=== PATIENT | male | born 1930 | race Caucasian/White ===

== ENCOUNTER → 2016-11-15 | Outpatient (CLI) | payer BC ==
[~2016-11-15] VITALS: Ht 162.6 cm; Wt 81.2 kg
[~2016-11-15] MED LIST: ACET-1256 PO; ACET-749 PO; APOA1CAP PO; ATOR-24 PO; CAFF200T13 PO; CALC-20 PO; CALC0.2510 PO; CHOL100010 PO; CHOL20009 PO; CIPR-255 PO; CMD2 PO; COEN200C PO; CYAN50005 PO; DONE10TA12 PO; ESCI1TAB10 PO; FISHOIL PO; MULT-513 PO; NITR1CAP16 PO; OMEG10007 PO; OMEP20CA9 OR; PHEN95TA14 PO; VERA120T15 PO; VERA1TAB53 PO; VITAMIN PO; WARF2TAB8 PO
[2016-11-15 14:55] VITALS: BP 153/81; PULSE 70; Ht 162.6 cm; Wt 81.2 kg
== END | disposition home or self-care (01) ==
LOC: C.NEUR 13:33
PROVIDERS: ATTEND Internal Medicine Pulmonary Disease
DX: G47.30 Sleep apnea, unspecified (principal)

== ENCOUNTER → 2016-11-19 | Outpatient (CLI) | payer BC ==
[~2016-11-19] MED LIST changes: -ACET-749 PO; -CAFF200T13 PO; -NITR1CAP16 PO; -PHEN95TA14 PO
--- NOTE | 2016-11-19 10:45 | DIAGNOSTIC IMAGING REPORT ---
ULTRASOUND OF THE THYROID GLAND CLINICAL HISTORY: Hyperparathyroidism. COMPARISON STUDY: No priors. TECHNIQUE: Real-time, grayscale, and color flow sonography of the thyroid gland is performed utilizing a high-frequency linear transducer. Images are reviewed in the transverse and longitudinal planes. FINDINGS: Right lobe: The right lobe of the thyroid gland is diminutive and heterogeneous in echotexture, measuring 3.3 x 1.7 x 1.6 cm. Left lobe: The left lobe of the thyroid gland is diminutive and heterogeneous in echotexture, measuring 4.0 x 1.2 x 1.1 cm. Isthmus: The thyroid isthmus is normal in appearance and measures 0.3 cm in AP diameter. IMPRESSION: The thyroid gland is diminutive and heterogeneous in echotexture. Electronically signed by: Raza Harris M.D. 11/19/2016 10:43 AM Dictated Date/Time: 11/19/2016 10:42 AM
== END | disposition home or self-care (01) ==
LOC: C.ULTR 09:59
PROVIDERS: ATTEND Family Medicine
DX: I10 Essential (primary) hypertension (principal); E66.9 Obesity, unspecified; R73.09 Other abnormal glucose; E21.3 Hyperparathyroidism, unspecified

== ENCOUNTER → 2016-12-06 | Outpatient (CLI) | payer BC | END | disposition home or self-care (01) | LOC: C.MAMM 14:46 | PROVIDERS: ATTEND Family Medicine | DX: E21.3 Hyperparathyroidism, unspecified (principal); Z13.820 Encounter for screening for osteoporosis ==

== ENCOUNTER → 2016-12-21 | Outpatient (CLI) | payer BC ==
[2016-12-21 17:59] LABS: CALCIUM URINE 10.2 mg/dl
--- NOTE | 2016-12-29 08:40 | CODING QUERY MEDICAL NECESSITY ---
SUPPORTING DIAGNOSIS NEEDED A supporting diagnosis is required for the test/procedure performed on this patient in order for us to be reimbursed by the patient's insurance. Please provide a supporting diagnosis for the following test/procedure listed below next to the test name along with your signature. *If there is no additional diagnosis for this patient that would support the following test/procedure please document that below next to the test/procedure. Test(s)/Procedure(s) that require a supporting diagnosis: * VITAMIN D 25-HYDROXY DIAGNOSIS: * DOS: 12/21/16 Provider Signature: Date: Thank you Ann Arias Health Information Management Once completed, please kindly fax back to [phone] For questions please call [phone]
== END | disposition home or self-care (01) ==
LOC: C.LAB1850 15:59
PROVIDERS: ATTEND Internal Medicine Endocrinology, Diabetes & Metabolism
DX: N20.0 Calculus of kidney (principal); E83.51 Hypocalcemia; E34.9 Endocrine disorder, unspecified

== ENCOUNTER → 2017-02-28 | Outpatient (CLI) | payer BC ==
[~2017-02-28] MED LIST changes: +ACET-749 PO; +CAFF200T13 PO; +NITR1CAP16 PO; +PHEN95TA14 PO
--- NOTE | 2017-02-28 17:43 | DIAGNOSTIC IMAGING REPORT ---
ULTRASOUND LEFT VENOUS DOPP LOWER EXT UNILAT CLINICAL HISTORY: Left leg pain. History of DVT. COMPARISON STUDY: No previous studies for comparison. FINDINGS: Real-time and color flow Doppler imaging were performed. Flow was seen within the femoral, popliteal and calf veins with no intraluminal thrombus demonstrated. The saphenous vein is patent. IMPRESSION: No evidence of left lower extremity DVT. Electronically signed by: Kali Julian M.D. 02/28/2017 5:41 PM Dictated Date/Time: 02/28/2017 5:40 PM
== END | disposition home or self-care (01) ==
LOC: C.ULTR 17:00
PROVIDERS: ATTEND Family Medicine
DX: M79.605 Pain in left leg (principal)

== ENCOUNTER → 2017-04-13 | Outpatient (CLI) | payer BC ==
[~2017-04-13] MED LIST changes: -CHOL100010 PO; -VITAMIN PO
--- NOTE | 2017-04-14 07:55 | PAP/PSG TECHNICIAN REPORT ---
[facility] Banquet Coordinator Polysomnogram Report Study name: None Report date: 04/14/2017 Study date: 04/13/2017 Referring Physician: DR. FLAVIA GUERRERO Name: LORE JOHN Interpreting Physician: Zac Olvera M.D. Date of : 1930 Banquet Coordinator: Alexa Beasley, PSGT. Sex: Male Age: 86 StudyType: PSG Weight: 176 lbs Height: 86 years, Height 5' 2" BMI: 32.19 Medications: SEE LIST OF 15 MEDICATIONS IN CHART. Patient History 86 YR. OLD MALE IN ROOM 7, PRESENTS FOR A SPLIT NIGHT SLEEP STUDY WITH AN AHI OF 15 OR GREATER.PT. HAS BEEN ON C-PAP AND HAS HAD A RECENT DME REAING OF 44.9. PT. HAS BEEN A SETTING OF 6 CM TO 15 CM WITH GREAT AIR LEAKAGE. Parameters Monitored NPSG: E1-M2, E2-M1, Fp1-M2, Fp2-M1, F3-M2, F4-M2, F4-M1, C3-M2, C4-M2, C4-M1, O1-M2, O2-M2, O2-M1, T3-M2, T4-M1, P3-M2, P4-M1, CHIN1, CHIN2, HR, EKG, Legs, PFLOW, SNOR, FLOW, CFLOW, Tidal Volume, THOR, ABDO, SpO2, PLTH, CPRESS, ETCO2 Wave, ETCO2, pH Sleep Architecture Sleep Stages Time at Lights Off 11:01:01 PM STAGES Time (min.) TST (%) Time at Lights On 5:45:31 AM Wake 52.5 -- Total Recording Time (TRT) 403.50 min. N1 15.5 4 Total Sleep Period (TSP) 364.0 min. N2 295.0 84 Total Sleep Time (TST) 351.0min. N3 0.0 0 Awake Time 52.5 min. REM 40.5 12 Wake after Sleep Onset 14.0 min. Sleep Efficiency (SE) 87 % Sleep Onset Latency (MOR) 39.5 min. Number of Stage 1 Shifts None Awakenings 3 Stage Changes 13 Number of REM periods 2 REM 40.5 12 REM Latency 185.0 min. NREM 310.5 88 Body Position Analysis Supine Right Left Side Prone Vertical Total Sleep Time (min.) 403.5 0.0 0.0 0.00 0.0 0.0 Total Sleep Time (%) 100% 0% 0% 0 0% N/A% Total Sleep Time REM (min.) 40.5 0.0 0.0 None 0.0 0.0 Total Sleep Time NREM (min.) 310.5 0.0 0.0 None 0.0 0.0 Intermittent Wake (min.) 52.5 0.0 0.0 None 0.0 0.0 Total Sleep Period (%) 100% None None None None None Arousals Myoclonus (PLM) * Events Count Index Events Count Index Spontaneous 84 14 Events Awake (PLMW) 4 4.6 Respiratory 18 3.1 Events Asleep w/ Arousal (PLMA) 7 1.2 PLM 7 1 Events Asleep w/o Arousal (PLMS) 128 21.9 Snoring 15 3 Total Asleep 135 23.1 Total 124 21 Total 139 21 Respiratory Analysis * CA OA MA CH H RERA Total Count 0 0 0 0 157 0 157 Index 0.0 0.0 0.0 0 26.8 0 26.8 Mean Duration 0.0 0.0 0.0 0.00 18.4 0.0 18.4 Longest Duration 0.0 0.0 0.0 0.00 0.0 0.0 53.0 Respiratory Event Summary Total Supine ~Supine Right Left Prone REM NREM Apneas Count 0 0 N/A N/A N/A N/A 0 0 Index 0.0 0 N/A N/A N/A N/A 0 0 Hypopneas (4% Desat) Count 157 157 N/A N/A N/A N/A 15 142 Index 26.8 26.8 N/A N/A N/A N/A 22.2 27.4 Apneas & All Hypopneas Count 157 157 N/A N/A N/A N/A 15 142 Index 26.8 27 N/A N/A N/A N/A 22.2 27.4 Respiratory Events (Draw Tender+All Hyp+RERA) Count 157 157 N/A N/A N/A N/A 15 142 Index 26.8 27 N/A N/A N/A N/A 22.2 27.4 Respiratory Related Arousal Count 18 157 N/A N/A N/A N/A 0 18 Index 3.1 3 N/A N/A N/A N/A 0 3 Snoring Analysis Supine Right Left Prone REM NREM Total Snore duration 5.8 min Snores count 226 N/A N/A N/A 20 206 226 Snore mean duration 1.5 Sec Snores index 39 N/A N/A N/A 29.6 39.8 38.6 TST with snoring (%) 1.7% Desaturation Event Summary: Minimum %SpO2 Event Count Mean/Min/Max Duration(sec.) Desaturation Index % Time In Bed > 90 160 20.6 / 9.5 / 60.0 195.8 12.2 86 - 90 158 20.3 / 8.3 / 60.0 27.6 85.2 81 - 85 0 N/A 0.0 2.6 76 - 80 0 N/A 0.0 0.1 71 - 75 0 N/A 0.0 0.0 66 - 70 0 N/A 0.0 0.0 61 - 65 0 N/A 0.0 0.0 56 - 60 0 N/A 0.0 0.0 51 - 55 0 N/A 0.0 0.0 < 50 0 N/A 0.0 0.0 Total REM NREM Awake <50% 0.0 min. 0.0 min. 0.0 min. 0.0 min. 51 - 60% 0.0 min. 0.0 min. 0.0 min. 0.0 min. 61 - 70% 0.0 min. 0.0 min. 0.0 min. 0.0 min. 71 - 80% 0.4 min. 0.0 min. 0.4 min. 0.0 min. 81 - 90% 354.1 min. 34.0 min. 272.6 min. 47.5 min. 91 - 100% 49.0 min. 6.5 min. 37.5 min. 5.0 min. Average 89 88 89 89 Minimum SpO2 79 81 79 85 Desaturation Event Index 30.0 45.9 33.0 0.0 # Desat. Events below 89% 197 28 169 N/A Time(%) with Saturation below 89% 50.6 5.6 39.4 5.6 Time(min.) with Saturation below 89% 204.3 22.5 159.1 22.7 Time (mins) REM (mins) NREM (mins) % of TST SpO2 Below 90% 202 31 N171 75.7 SpO2 Below 88% 69 0 0 25 Heart Rate Analysis Min (bpm) Max (bpm) Average (bpm) Awake 60 85 66 NREM 55 80 64 REM 58 72 65 Overall 55 80 64 Supplemental O2 Values Minimum O2 level: None Value Start Time End Time Banquet Coordinator Comments PSG Study Mr. John slept in the supine position.. No cardiac arrhythmia or PLM's noted. No bruxism noted. Snoring was noted and scored as a 1 on a scale of 1 through 5. (0=no snoring, 5=snoring loud enough to be heard through a closed door or down the menjivar way) Mr. John awoke to use the restroom zero times during the night. Mr. John stated, I did sleep as well as I do when I am in my own bed. The bed was comfortable. The final report will be interpreted and signed by a sleep physician. The completed physician report will then be placed in the patient medical record. Pt. did not meet split night criteria. Love did sleep supine the entire study, he did have respiratory events and display hypoxemia, however he did not qualify for a split night study in time for treatment. Therapy (cm H2O) 0 TIB (min.) 403.5 TST (min.) 351.0 Sleep Onset (min.) 39.5 REM Onset From Sleep (min.) 185.0 Sleep Efficiency % 87 Wakefulness (%) 13 Wakefulness (min.) 52.5 NREM 1 (%) 4 NREM 1 (min.) 15.5 NREM 2 (%) 84 NREM 2 (min.) 295.0 NREM 3 (%) 0 NREM 3 (min.) 0.0 REM (%) 12 REM (min.) 40.5 # Arousals 124 Arousal Index 21 # Snore 226 Snore Index 38.6 AHI 26.8 AHI Supine 27 AHI Non-Supine N/A NREM AHI 27.4 REM AHI 22.2 RDI 26.8 # Obstructive Apnea 0 # Central Apnea 0 # Mixed Apnea 0 # Hypopneas 157 RERAs 0 Total Respiratory Events 159 Time Below SpO2 89% (min.) 181.6 Mean NREM SpO2 (%) 89 Mean REM SpO2 (%) 88 Mean Sleep SpO2 (%) 89 Min NREM SpO2 (%) 79 Min REM SpO2 (%) 81 Position Supine (min.) 403.5 Position Non-supine (min.) 0.0 LM Index Sleep 23.1 LM Index NREM 23.8 LM Index REM 17.8 Mean Heart Rate (bpm) 64 Min Heart Rate (bpm) 55
--- NOTE | 2017-04-17 21:44 | POLYSOMNOGRAPH REPORT ---
REFERRING PHYSICIAN: Dr. Ha Hsieh. CLINICAL DATA: The patient is an 86-year-old male. He was diagnosed with obstructive sleep apnea approximately 1999. He was started on CPAP therapy, but did not use it regularly. A CPAP re-titration study was done 11/01/2016. His CPAP was treated up to a pressure of 6 cm. His apnea-hypopnea index was only 3.6. The patient has been wearing CPAP regularly. However, compliance data has shown significant sleep apnea. Compliance for the 4 weeks prior to January 31 shows an apnea-hypopnea index of 48.5 with the CPAP set at 6. Compliance obtained for the 4 weeks before February 18 revealed the apnea-hypopnea index was 44.9. Compliance obtained for 4 weeks prior to March 29 showed an apnea-hypopnea index of 25.3 and this was with the patient wearing auto CPAP with pressures between 5 and 15. He is referred back to the sleep disorder center for a sleep study, which would be split, if he met criteria. This study was advised in light of the high reported apnea-hypopnea index, which was markedly different than had been seen at the time of the original CPAP titration study done 6 months ago. SLEEP ARCHITECTURE: The total sleep period was 364 minutes. The total sleep time was 351 minutes. Sleep efficiency was 87%, which would be borderline normal. Sleep onset latency was prolonged at 39.5 minutes. Wake after sleep onset was only 14 minutes. REM latency was prolonged to 185 minutes. Sleep consisted of stage N1 4%, stage N2 84%, stage N3 0%, stage REM 12%. AROUSAL DATA: The patient had a total of 124 arousals, including 84 spontaneous arousals, 18 respiratory arousals, 7 PLM arousals and 15 snoring arousals. The arousal index was 21. PLM DATA: The patient had a total of 135 periodic limb movements for an index of 23.1. There were 7 arousals for a PLM arousal index of 1.2. RESPIRATORY DATA: The patient had a total of 157 respiratory events, all of which were hypopneas. Hypopneas were scored according to the 4% desaturation rule. The apnea-hypopnea index was elevated at 26.8, representing moderate sleep apnea. The mean duration of the hypopneas was 18.4 seconds. OXIMETRY DATA: The average saturation was 89%. The minimum saturation was 79%. The patient had a total of 69 minutes with saturations less than 88%. EKG DATA: The underlying cardiac rhythm was normal sinus. Occasional PACs were noted. The cardiac rates ranged from 55 up to 80 beats per minute with an average of 64 beats per minute. CLIENT CARE MANAGER COMMENTS: The patient slept in the supine position. Snoring was noted and was scored as a 1 on a scale of 1 through 5. The patient indicated he slept as well as he usually does in his own bed. The patient did not meet split night criteria. He did have respiratory events and displayed hypoxemia, however, he did not qualify for a split night study in time for treatment. IMPRESSION: 1. Obstructive sleep apnea -- moderate. 2. Periodic limb movement disorder. COMMENTS: This diagnostic study shows the patient still has moderate sleep apnea. However, he had very few events prior to 1:30 a.m. and thus, a split study could not be done. In addition to the events noted, he had spontaneous arousals that were increased from normal. This may reflect further upper airway resistance. His oxygenation was abnormal, as noted above. RECOMMENDATIONS: 1. It is advised that the patient once again have a CPAP re-titration. This would be helpful to try and determine if he had been having complex sleep apnea as a reason for the elevated apnea-hypopnea index after the first CPAP study done in October 2016. 2. The patient does have an elevated body mass index of 32.19. A weight loss program would be advised.
== END | disposition home or self-care (01) ==
LOC: C.NEUR 21:00
PROVIDERS: ATTEND Physician Assistant Medical
DX: G47.30 Sleep apnea, unspecified (principal)

== ENCOUNTER → 2017-07-22 | Outpatient (CLI) | payer BC ==
[~2017-07-22] MED LIST changes: -ACET-749 PO; -APOA1CAP PO; -CALC0.2510 PO; -NITR1CAP16 PO; -PHEN95TA14 PO
== END | disposition home or self-care (01) ==
LOC: C.LAB1850 10:27
PROVIDERS: ATTEND Internal Medicine Endocrinology, Diabetes & Metabolism
DX: E83.51 Hypocalcemia (principal); M81.0 Age-related osteoporosis without current pathological fracture

== ENCOUNTER 2017-08-10 21:01 | Inpatient (IN) | payer BC, OTHER ==
[~2017-08-10] VITALS: Ht 157.5 cm; Wt 78.0 kg
[~2017-08-10 21:01] MED LIST changes: -ACET-1256 PO; -CAFF200T13 PO; -CIPR-255 PO; -CYAN50005 PO; -MULT-513 PO; -OMEG10007 PO; -VERA120T15 PO
[2017-08-10] MEDS ORDERED: FENTANYL CITRATE INJ 50 MCG/1 ML 2 ML VIAL IV STA (21:38)
[2017-08-10] MEDS ORDERED: SODIUM CHLORIDE 0.9% 1000ML 1,000 ML IV STA (21:38)
[2017-08-10] MEDS ORDERED: ONDANSETRON INJ 2 MG/ML 2 ML VIAL IV STA (21:38)
[2017-08-10] MEDS ORDERED: ACET-1256 PO (21:54)
[2017-08-10] MEDS ORDERED: CHOL20009 PO (21:54)
[2017-08-10] MEDS ORDERED: OMEG10007 PO (21:54)
[2017-08-10] MEDS ORDERED: CYAN50005 PO (21:54)
[2017-08-10] MEDS ORDERED: MULT-513 PO (21:54)
[2017-08-10] MEDS ORDERED: VERA120T15 PO (21:54)
[2017-08-10] MEDS ORDERED: OPTIRAY 320 IV PRN (22:00)
[2017-08-10 22:13] LABS: BASO % 0.5 %; BASO ABS # 0.06 K/uL (0-0.2); COMPLETE YES; EOS % 1.1 %; HEMATOCRIT 41.3 % (42-52); IG% 0.2 %; LYMPH % 11.7 %; LYMPH ABS # 1.51 K/uL (1.2-3.4); MEAN CELL VOLUME 93.2 fL (80-100); MEAN CORPUSCULAR HEMOGLOBIN 30.5 pg (25-34); MEAN CORPUSCULAR HGB CONC 32.7 g/dl (32-36); MEAN PLATELET VOLUME 10.5 fL (7.4-10.4); MONO % 9.9 %; NEUT % 76.6 %; PLATELET COUNT 237 K/uL (130-400); RED BLOOD COUNT 4.43 M/uL (4.7-6.1); WHITE BLOOD COUNT 12.91 K/uL (4.8-10.8)
--- NOTE | 2017-08-10 22:32 | EMERGENCY ROOM VISIT NOTE ---
History Report prepared by Deonte: Keeley Chery Under the Supervision of: Dr. Daniel Alvarado M.D. First contact with patient: 21:09 Chief Complaint: FLANK PAIN Stated Complaint: FLANK PAIN, HX KIDNEY STONES History of Present Illness The patient is an 87 year old male who presents to the Emergency Room with complaints of persistent left flank pain starting 1899. He was feeling well before the pain started. The patient has a history of kidney stones and thinks that this might be a kidney stone. The pain comes around to the front. He currently rates his discomfort as a 7/10 in severity. He took Tylenol at 1899 and ibuprofen at 1999 which improved his pain. He was nauseous and vomited several times. He denies any fever, chills, cough, congestion, SOB, diarrhea, or hematuria. He notes that his blood calcium was found to be low recently and he is currently taking calcium supplements. The patient is on Coumadin for the history of ischemic stroke. He is not on a water pill. Source of History: patient, spouse/significant other Onset: 1899 Position: other (left flank) Symptom Intensity: 7/10 Quality: other (pain) Timing: other (persistent) Modifying Factors (Relieving): tylenol, ibuprofen Associated Symptoms: + nausea, + vomiting, No fevers, No chills, No cough, No SOB, No diarrhea, No urinary symptoms Note: Pt denies congestion. Review of Systems See HPI for pertinent positives and negatives. A total of ten systems were reviewed and were otherwise negative. Past Medical & Surgical Medical Problems: (1) Aortic Valve Disorder (2) Atrial Fibrillation (3) Hyperlipidemia Nec/Nos (4) Hypertension Nos (5) Personal Hx Of Tia,& Cerebral Infarction W/Out Res Deficits (6) Renal stone Family History Noncontributory secondary to age. Social History Smoking Status: Never Smoker Marital Status: Housing Status: lives with family Occupation Status: retired Current/Historical Medications Scheduled Acetaminophen (Tylenol), 1,000 MG PO DAILY Atorvastatin (Lipitor), 40 MG PO QAM Calcium Carbonate-Vitamin D (Calcium 600 + D), 1 TAB PO BID Cholecalciferol (Vitamin D), 1 TAB PO BID Coenzyme Q10 (Ubidecarenone) (Coenzyme Q-10), 200 MG PO QAM Cyanocobalamin (Vitamin B-12), 1 TAB PO DAILY Donepezil Hydrochloride (Aricept), 10 MG PO HS Escitalopram Oxalate (Lexapro), 20 MG PO DAILY Fish Oil ([place]-3), 2,800 MG PO BID Multivitamins/Minerals (Mvi With Minerals), 1 TAB PO DAILY Omeprazole (Prilosec), 20 MG OR DAILY Verapamil (Calan), 120 MG PO QAM Warfarin Sod (Coumadin), 2 MG PO 4XWK Warfarin Sod (Jantoven), 1 MG PO 3XWK Allergies Coded Allergies: Lorazepam (Verified Adverse Reaction, Severe, Unresponsive, 08/11/17) Pt and report that pt became unresponsive and had difficulty breathing in the ER when given Ativan after already having recieved pain meds (? which ones or doses ?) Physical Exam Vital Signs Date Time Temp Pulse Resp B/P (MAP) Pulse Ox O2 Delivery O2 Flow Rate FiO2 08/11/17 01:11 52 23 95 08/11/17 01:06 56 21 96 08/11/17 01:01 146/69 08/11/17 00:51 51 21 96 08/11/17 00:36 52 20 96 08/11/17 00:31 58 19 119/70 95 08/11/17 00:16 55 20 95 08/11/17 00:01 54 22 125/69 97 08/10/17 23:46 54 20 96 08/10/17 23:31 57 24 150/72 94 08/10/17 23:16 55 20 95 08/10/17 23:10 131/64 08/10/17 22:46 60 22 97 08/10/17 22:36 57 16 139/69 98 2.0 08/10/17 22:34 139/69 08/10/17 22:31 57 17 87 08/10/17 22:21 59 08/10/17 21:04 36.8 60 18 184/81 94 Room Air Physical Exam GENERAL: Awake, alert, well-appearing, in no distress HENT: Normocephalic, atraumatic. Dry mucous membranes. EYES: Normal conjunctiva. Sclera non-icteric. NECK: Supple. No nuchal rigidity. FROM. No JVD. RESPIRATORY: Clear to auscultation. CARDIAC: Regular rate, normal rhythm. Extremities warm and well perfused. Pulses equal. 3/6 systolic murmur. ABDOMEN: Soft, non-distended. Mild left flank tenderness to palpation. No peritoneal signs. No rebound or guarding. No masses. RECTAL: Deferred. MUSCULOSKELETAL: Chest examination reveals no tenderness. The back is symmetrical on inspection without obvious abnormality. There is no CVA tenderness to palpation. No joint edema. LOWER EXTREMITIES: Calves are equal size bilaterally and non-tender. No edema. No discoloration. NEURO: Normal sensorium. No sensory or motor deficits noted. SKIN: No rash or jaundice noted. Medical Decision & Procedures ER Provider Diagnostic Interpretation: STAT RAD Preliminary Findings Only See Final Report For Complete Findings CT ABDOMEN & PELVIS: 7 x 10 mm stone in left distal ureter with moderate obstructive changes. Cardiomegaly Small hiatal hernia Cholecystectomy. Low attenuation area in the liver or gallbladder fossa. Renal cysts. Large heterogeneous prostate. Colonic diverticula without diverticulitis. Appendix not identified. Haziness and nodes in the mesentery. 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 There is a broader differential. Pulmonary infiltrates/fibrosis. Left inguinal hernia repair. Radiologist: Chikis Stoll M.D. Laboratory Results Test 08/10/17 23:30 Urine Color YELLOW Urine Appearance CLEAR (CLEAR) Urine pH 5.0 (4.5-7.5) Urine Specific Davidson > 1.045 (1.000-1.030) Urine Protein NEG (NEG) Urine Glucose (UA) NEG (NEG) Urine Ketones NEG (NEG) Urine Occult Blood 2+ (NEG) Urine Nitrite NEG (NEG) Urine Bilirubin NEG (NEG) Urine Urobilinogen NEG (NEG) Urine Leukocyte Esterase TRACE (NEG) Urine WBC (Auto) 5-10 /hpf (0-5) Urine RBC (Auto) >30 /hpf (0-4) Urine Hyaline Casts (Auto) 1-5 /lpf (0-5) Urine Epithelial Cells (Auto) 5-10 /lpf (0-5) Urine Bacteria (Auto) NEG (NEG) Laboratory results reviewed by me Medications Administered Medications (Trade) Dose Ordered Sig/Noel Route Start Time Stop Time Status Last Admin Dose Admin Sodium Chloride 1,000 ml @ 999 mls/hr Q1H1M STAT IV 08/10/17 21:38 08/10/17 22:38 DC 08/10/17 21:38 999 MLS/HR Fentanyl Citrate (Fentanyl Inj) 50 mcg NOW STAT IV 08/10/17 21:38 08/10/17 21:45 DC 08/10/17 22:18 50 MCG Ondansetron HCl (Zofran Inj) 4 mg NOW STAT IV 08/10/17 21:38 08/10/17 21:45 DC 08/10/17 22:18 4 MG Ceftriaxone Sodium 2000 mg/ Dextrose 70 ml @ 100 mls/hr ONE STAT IV 08/11/17 00:03 08/11/17 00:44 DC 08/11/17 00:30 100 MLS/HR Tamsulosin HCl (Flomax Cap) 0.4 mg NOW ONCE PO 08/11/17 00:15 08/11/17 00:16 DC 08/11/17 00:28 0.4 MG Miscellaneous Information (Nursing Verbal Med Order) 1 ea ONE ONCE N/A 08/11/17 01:00 08/11/17 01:01 DC 08/11/17 00:30 1 EA ECG Indication: nausea Rate (beats per minute): 64 Rhythm: normal sinus Findings: no acute ischemic change, other (normal axis) ED Course 2136: The patient was evaluated in room A2. A complete history and physical exam was performed. 2137: Zofran Inj 4 mg IV, Fentanyl Citrate 50 mcg IV, NSS 1000 ml @ 999 mls/hr IV. 0030: I d/w Dr. Larson, Urology, who is aware of the patient and will evaluate the patient in AM upon consultation by admitting team. 0038: I d/w Dr. Lindsay, [facility] hospitalist who will admit the patient for further management. Medical Decision I reviewed the patient's past medical history, medications, and the nursing notes as described above. Differential diagnosis: cystitis, pyelonephritis, renal stone, diverticulitis, musculoskeletal strain. The patient is an 87-year-old gentleman with a past medical history of renal stones, Afib on Coumadin who presents to the emergency department with acute flank pain per history of present illness. Arrival the patient is in no acute distress, afebrile with stable vital signs. He has mild left flank tenderness to palpation but no peritoneal signs. WBC 12.9. Cr wnl. INR 2.1. CT abd/pel shows 7x10mm distal ureteral stone with moderate hydro. UA gross positive for infection. Otherwise, patient is non-toxic appearing, HD stable in NAD. Ordered for CTX. Given elderly patient with large obstructing stone unlikely to pass spontaneously will admit for continued IV abx and urology evaluation in AM. I d/ w Dr. Larson, urology, who is aware of the patient. I d/w Dr. Lindsay, [facility] hospitalist. who will admit the patient for further management. Medication Reconcilliation Current Medication List: was personally reviewed by me Blood Pressure Screening Patient's blood pressure: Elevated blood pressure Blood pressure disposition: Elevated BP felt to be situational Impression Primary Impression: Hydronephrosis due to obstruction of ureter Additional Impressions: Nephrolithiasis UTI (urinary tract infection) Scribe Attestation The scribe's documentation has been prepared under my direction and personally reviewed by me in its entirety. I confirm that the note above accurately reflects all work, treatment, procedures, and medical decision making performed by me. Departure Information Referrals Ha Hsieh M.D. (PCP) Patient Instructions My [facility] [address] Problem Qualifiers
[2017-08-10 22:33] LABS: BUN/CREATININE RATIO 13.9 (10-20); CALCIUM 8.8 mg/dl (8.5-10.1); CREATININE 0.97 mg/dl (0.60-1.40); POTASSIUM 3.5 mmol/L (3.5-5.1)
[2017-08-10 22:59] LABS: INR 2.1 (0.9-1.1); PROTHROMBIN TIME (PATIENT) 22.7 SECONDS (9.0-12.0)
[2017-08-10 23:48] LABS: URINE APPEARANCE CLEAR (CLEAR); URINE BILIRUBIN NEG (NEG); URINE COLOR YELLOW; URINE NITRITE NEG (NEG); URINE SPECIFIC GRAVITY > 1.045 (1.000-1.030); UROBILINOGEN NEG (NEG); ZZUR CULT IF INDIC CLEAN CATCH NO
[2017-08-10 23:51] LABS: MANUAL MICROSCOPIC REQUIRED? NO; REVIEW REQ? NO
[2017-08-11] VITALS (9 sets, daily range): BP systolic 104–156; BP diastolic 60–97; PULSE 52–77; TEMP 36.5–36.8; O2SAT 92–98; Ht 157.5 cm; Wt 78.0 kg
[2017-08-11] MEDS ORDERED: CEFTRIAXONE SOD INJ 2,000 MG in DEXTROSE 5% 50ML 50 ML IV STA (00:03)
[2017-08-11] MEDS ORDERED: SODIUM CHLORIDE 0.9% 1000ML 1,000 ML IV STA (00:06)
[2017-08-11] MEDS ORDERED: TAMSULOSIN HCL 0.4 MG CAP PO ONE (00:15)
[2017-08-11] MEDS ORDERED: NURSING VERBAL MED ORDER ONE ×2 (01:00→10:15)
[2017-08-11] MEDS ORDERED: SODIUM CHLORIDE 0.9% 1000ML 1,000 ML IV SCH (01:00)
--- NOTE | 2017-08-11 01:06 | History and Physical ---
History & Physical Date & Time of Service: Aug 11, 2017 at 00:55 Chief Complaint: Flank Pain, Hx Kidney Stones Primary Care Physician: Ha Hsieh M.D. History of Present Illness The patient is a pleasant 87 year old male with a history of Afib, HTN, HLD, Depression, Gastric Ulcer, mild dementia, who presents with acute onset abdominal pain. The patient was in his usual state of health at 7pm when he suddenly felt sudden left-sided lower back pain radiating to the groin on the left side. Describes it as "very painful", /10. Describes the pain as constant. Tylenol and Ibuprofen helped minimally. He also notes starting to have intractable nausea and vomiting. No blood in the urine. Denies any pain with urination or frequency. No fevers, chills or sweats. Appetite and intake have been good. No issues with bowel movements including diarrhea, melena, hematochezia or constipation. No chest pain shortness of breath, coughing or wheezing. He denies any weakness. He states a prior history of kidney stones. Past Medical/Surgical History Medical Problems: Aortic Valve Disorder Status: Chronic Atrial Fibrillation Status: Chronic Hyperlipidemia Nec/Nos Status: Chronic Hypertension Nos Status: Chronic History of gastric ulcer Personal Hx Of Tia,& Cerebral Infarction W/Out Res Deficits Status: Resolved Dementia GUY on CPAP Surgical History - Appendicectomy - Cholecystectomy - ENT surgery otherwise unspecified (?tongue?) Social History Smoking Status: Never Smoker Smokeless Tobacco Use: No Alcohol Use: none Drug Use: none Marital Status: Housing status: lives with family (daughter and 2 children and ) Occupational Status: retired Multi-Drug Resistant Organisms History of MDRO: No Allergies Coded Allergies: Lorazepam (Verified Adverse Reaction, Severe, Unresponsive, 02/08/17) Pt and report that pt became unresponsive and had difficulty breathing in the ER when given Ativan after already having recieved pain meds (? which ones or doses ?) Home Medications Scheduled Acetaminophen (Tylenol), 1,000 MG PO DAILY Atorvastatin (Lipitor), 40 MG PO QAM Calcium Carbonate-Vitamin D (Calcium 600 + D), 1 TAB PO BID Cholecalciferol (Vitamin D), 1 TAB PO BID Coenzyme Q10 (Ubidecarenone) (Coenzyme Q-10), 200 MG PO QAM Cyanocobalamin (Vitamin B-12), 1 TAB PO DAILY Donepezil Hydrochloride (Aricept), 10 MG PO HS Escitalopram Oxalate (Lexapro), 20 MG PO DAILY Fish Oil ([place]-3), 2,800 MG PO BID Multivitamins/Minerals (Mvi With Minerals), 1 TAB PO DAILY Omeprazole (Prilosec), 20 MG OR DAILY Verapamil (Calan), 120 MG PO QAM Warfarin Sod (Coumadin), 2 MG PO 4XWK Warfarin Sod (Jantoven), 1 MG PO 3XWK Review of Systems A 10 point review of systems was negative unless stated above. Physical Exam Vital Signs Date Time Temp Pulse Resp B/P (MAP) Pulse Ox O2 Delivery O2 Flow Rate FiO2 08/11/17 00:31 58 19 119/70 95 08/11/17 00:16 55 20 95 08/11/17 00:01 54 22 125/69 97 08/10/17 23:46 54 20 96 08/10/17 23:31 57 24 150/72 94 08/10/17 23:16 55 20 95 08/10/17 23:10 131/64 08/10/17 22:46 60 22 97 08/10/17 22:36 57 16 139/69 98 2.0 08/10/17 22:34 139/69 08/10/17 22:31 57 17 87 08/10/17 22:21 59 08/10/17 21:04 36.8 60 18 184/81 94 Room Air General Appearance: WD/WN, no apparent distress, + obese Head: normocephalic, atraumatic Eyes: normal inspection, EOMI ENT: hearing grossly normal, pharynx normal Neck: supple, no adenopathy, no JVD Respiratory/Chest: lungs clear, no respiratory distress Cardiovascular: regular rate, rhythm, no gallop, no murmur Abdomen/GI: normal bowel sounds, non tender, soft Back: no CVA tenderness, no muscle spasm Extremities/Musculoskelatal: no calf tenderness, no pedal edema Neurologic/Psych: alert, normal mood/affect, oriented x 3 Skin: normal color, warm/dry, no rash Lymphatic: no adenopathy Diagnostics Laboratory Results Results Past 24 Hours Test 08/10/17 22:03 08/10/17 22:43 08/10/17 23:30 Range/Units White Blood Count 12.91 4.8-10.8 K/uL Red Blood Count 4.43 4.7-6.1 M/uL Hemoglobin 13.5 14.0-18.0 g/dL Hematocrit 41.3 42-52 % Mean Corpuscular Volume 93.2 80-100 fL Mean Corpuscular Hemoglobin 30.5 25-34 pg Mean Corpuscular Hemoglobin Concent 32.7 32-36 g/dl Platelet Count 237 130-400 K/uL Mean Platelet Volume 10.5 7.4-10.4 fL Neutrophils (%) (Auto) 76.6 % Lymphocytes (%) (Auto) 11.7 % Monocytes (%) (Auto) 9.9 % Eosinophils (%) (Auto) 1.1 % Basophils (%) (Auto) 0.5 % Neutrophils # (Auto) 9.89 1.4-6.5 K/uL Lymphocytes # (Auto) 1.51 1.2-3.4 K/uL Monocytes # (Auto) 1.28 0.11-0.59 K/uL Eosinophils # (Auto) 0.14 0-0.5 K/uL Basophils # (Auto) 0.06 0-0.2 K/uL RDW Standard Deviation 45.7 36.4-46.3 fL RDW Coefficient of Variation 13.4 11.5-14.5 % Immature Granulocyte % (Auto) 0.2 % Immature Granulocyte # (Auto) 0.03 0.00-0.02 K/uL Sodium Level 142 136-145 mmol/L Potassium Level 3.5 3.5-5.1 mmol/L Chloride Level 108 98-107 mmol/L Carbon Dioxide Level 26 21-32 mmol/L Anion Gap 8.0 3-11 mmol/L Blood Urea Nitrogen 14 7-18 mg/dl Creatinine 0.97 0.60-1.40 mg/dl Est Creatinine Clear Calc Drug Dose 48.5 ml/min Estimated GFR () 81.0 Estimated GFR (Non- 69.9 BUN/Creatinine Ratio 13.9 10-20 Random Glucose 116 70-99 mg/dl Calcium Level 8.8 8.5-10.1 mg/dl Prothrombin Time 22.7 9.0-12.0 SECONDS Prothromb Time International Ratio 2.1 0.9-1.1 Urine Color YELLOW Urine Appearance CLEAR CLEAR Urine pH 5.0 4.5-7.5 Urine Specific [place] > 1.045 1.000-1.030 Urine Protein NEG NEG Urine Glucose (UA) NEG NEG Urine Ketones NEG NEG Urine Occult Blood 2+ NEG Urine Nitrite NEG NEG Urine Bilirubin NEG NEG Urine Urobilinogen NEG NEG Urine Leukocyte Esterase TRACE NEG Urine WBC (Auto) 5-10 0-5 /hpf Urine RBC (Auto) >30 0-4 /hpf Urine Hyaline Casts (Auto) 1-5 0-5 /lpf Urine Epithelial Cells (Auto) 5-10 0-5 /lpf Urine Bacteria (Auto) NEG NEG Diagnostic Radiology Left distal ureter stone with moderate obstruction Stone size 10 mm x 7mm Impression Assessment and Plan 87 year old with left distal ureter stone with moderate obstruction. There is possible evidence of UTI superimposing presentation with risk of seeding to stone. Our plan for him as follows: Left Ureteral Stone - NPO - NSS + 20 KCl @ 125 ml/hr - UA indicates possible UTI though no symptoms; urine culture is pending; will cover with Zosyn as patient is at risk for seeding if infection is present - Consult Urology; discussed case over the phone and they will see in the AM - Pain Control Tylenol --> Oxycodone --> Morphine Would avoid NSAIDs due to history of Gastric ulcer bleed - INR 2.1; no indication for reversal; will hold Coumadin at this time History of Atrial Fibrillation - Rate controlled currently; continue Verapamil - Hold anticoagulation as patient is for possible procedure tomorrow Hyperlipidemia - Continue Atorvastatin Hypertension - Continue Verapamil Mild Dementia - Continue Aricept Anxiety/Depression - Continue Lexapro DVT Prophylaxis - SCD Knee, KENJI Hose - Hold pharmacological anticoagulation at this time Code Status - Level I Full Code Disposition - Med/Surg - OT and PT evaluations Resident Physician Supervision Note: Pt seen/examined independently. I discussed the case with the resident and agree with the findings and plan as documented in the note. Any exceptions or clarifications are listed here: 87 y/o M AF on Coumadin, HTN - presenting with acute L sided back/flank pain - CT reveales a 7mm stone in L ureter - UA is + - no fever but c/o of feeling cold OE AAO x 2 S1,2 irr CTAB NT, ND - could not elicit CVA pain No CCE P: Likely to need intervention due to stone size - NPO, IVF - Coumadin held and may need to reverse INR Placed on Abx due to + UA and likely pending intervention Pt otherwise stable Documented By: Michael Lindsay Level of Care Med/Surg Resuscitation Status FULL RESUSCITATION VTE Prophylaxis Given or contraindicated: Vikas Aguilar, SCD's
[2017-08-11] MEDS ORDERED: ALUMINUM/MAGNESIUM/SIMETH (MAALOX MAX) 30 ML UDC PO PRN (01:15)
[2017-08-11] MEDS ORDERED: POLYETHYLENE (MIRALAX) 17 GM PACK PO PRN (01:15)
[2017-08-11] MEDS ORDERED: MAGNESIUM HYDROXIDE SUSP 30 ML UDC PO PRN (01:15)
[2017-08-11] MEDS ORDERED: ONDANSETRON INJ 2 MG/ML 2 ML VIAL IV PRN ×2 (01:15→10:45)
[2017-08-11] MEDS ORDERED: MoRPHine SULFATE 4 MG/ML 1 ML CARP\\VIAL IV PRN (01:15)
[2017-08-11] MEDS ORDERED: ACETAMINOPHEN 325 MG TAB PO PRN (01:15)
[2017-08-11] MEDS ORDERED: OXYCODONE HCL IR 5 MG TAB (IMMEDIATE RELEASE) PO PRN (01:15)
[2017-08-11] MEDS ORDERED: PIPERACILL/TAZOBAC CONSULT ACTIVE PRN (01:45)
[2017-08-11] MEDS ORDERED: PIPERACILL/TAZOBAC IV 3.375 GM in DEXTROSE 5% 100ML IV ONE (03:30)
[2017-08-11] MEDS: NSS + 20MEQ KCL 1000ML 1,000 ML IV SCH ×3 (03:54→19:06)
[2017-08-11] MEDS ORDERED: PNEUMOCOCCAL POLYSACCHARIDES 25 MCG/0.5 ML VIAL/SYR IM. ONE (04:15)
[2017-08-11] MEDS ORDERED: PNEUMOCOCCAL ADMINISTRATION CHARGE ONE (04:15)
[2017-08-11 05:37] LABS: BASO % 0.5 %; BASO ABS # 0.04 K/uL (0-0.2); COMPLETE YES; EOS % 2.4 %; HEMATOCRIT 40.4 % (42-52); IG% 0.1 %; LYMPH % 27.2 %; LYMPH ABS # 2.01 K/uL (1.2-3.4); MEAN CELL VOLUME 94.4 fL (80-100); MEAN CORPUSCULAR HEMOGLOBIN 30.1 pg (25-34); MEAN CORPUSCULAR HGB CONC 31.9 g/dl (32-36); MONO % 13.3 %; NEUT % 56.5 %; PLATELET COUNT 204 K/uL (130-400); RED BLOOD COUNT 4.28 M/uL (4.7-6.1); WHITE BLOOD COUNT 7.38 K/uL (4.8-10.8)
[2017-08-11 05:48] LABS: PROTHROMBIN TIME (PATIENT) 22.1 SECONDS (9.0-12.0)
[2017-08-11 06:04] LABS: CREATININE 0.81 mg/dl (0.60-1.40)
[2017-08-11 06:05] LABS: BUN/CREATININE RATIO 16.3 (10-20); CALCIUM 8.1 mg/dl (8.5-10.1); POTASSIUM 3.6 mmol/L (3.5-5.1)
--- NOTE | 2017-08-11 07:31 | DIAGNOSTIC IMAGING REPORT ---
ABD/PELVIS IV CONTRAST ONLY HISTORY: 87 years-old Male left flank pain acute left-sided flank pain. Initial exam. COMPARISON: CT abdomen and pelvis 01/23/2015 TECHNIQUE: Multiple axial CT images of the abdomen and pelvis were obtained following the intravenous administration of 115 mL Optiray 320. A dose lowering technique was used consistent with the principals of ANUN. FINDINGS: Reticular opacities of the right lung base suggest admixture of scarring with atelectasis. Subsegmental consolidative opacities with background interstitial scarring is noted on the left. Small left Bochdalek hernia. There is no pneumoperitoneum identified. Inferior cardiac chambers are enlarged. Prior cholecystectomy. 1.2 x 1.6 cm area of low-attenuation is noted within the left hepatic lobe near the gallbladder fossa, unchanged suggesting benign etiology such as a cyst or hemangioma. There is nonspecific 5 mm area of low-attenuation within the anterior spleen. Pancreas and adrenal glands are unremarkable. Cysts are noted within the bilateral kidneys, largest measuring up to 6.1 cm on lateral aspect of the interpolar left kidney. 2 mm hyperattenuating focus of the interpolar right kidney on image 182 suggests contrast within a calyx or a nonobstructing calculus. There is moderate arthropathy of the left secondary to a 10 x 7 x 5 mm calculus just proximal to the left ureterovesicular junction. Mild stranding is seen showing the left kidney and left ureter. There is wall thickening of the urinary bladder lumen suggesting chronic bladder outlet obstruction with enlarged heterogeneous centrally calcified prostate. Posterior changes are seen on the left from prior internal hernia repair. Small fat filled bilateral internal or hernias are present. Moderate to extensive atherosclerotic plaquing of the abdominal aorta. No bulky adenopathy identified. Small sliding type I or hernia. Small duodenal diverticulum. No bowel obstruction or focal bowel wall thickening. Scattered colonic diverticulosis without diverticulitis. No evidence of acute appendicitis. There is moderate stranding with scattered nonenlarged lymph nodes of the mid mesentery which appears unchanged from prior study of 01/23/2015. Soft tissues are unremarkable. Bones are osteopenic with out suspicious abnormality. Severe multilevel intervertebral disc space narrowing and facet arthropathy. IMPRESSION: 1. Moderate left-sided hydroureteronephrosis secondary to a 10 x 7 x 5 mm calculus of the distal left ureter just proximal to the left ureterovesicular junction . 2. Probable 2 mm nonobstructing calculus of the interpolar right kidney versus contrast in a calyx. 3. Subsegmental groundglass and consolidative opacities of the left lower lobe suggests pneumonia or atelectasis. Chronic scarring is seen within the bilateral lung bases. 4. Prior cholecystectomy and left inguinal hernia repair. 5. 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 6. Colonic diverticulosis without acute diverticulitis. 7. Additional chronic changes as above. The above report was generated using voice recognition software. It may contain grammatical, syntax or spelling errors. Electronically signed by: Ron Barba M.D. 08/11/2017 6:59 AM Dictated Date/Time: 08/11/2017 6:51 AM
--- NOTE | 2017-08-11 08:52 | Urology Consultation ---
History General Date of Service: Aug 11, 2017. Chief Complaint: left flank pain Primary Care Physician: Ha Hsieh M.D. Pt seen a urologist before?: Yes (Dr. Newell) If yes, why?: hx of hematuria, BPH, and stones History of Present Illness 87 yo male admitted to [facility] with c/o left flank pain that started yesterday. CT scan on admission showing a 10mm distal left ureteral stone. The pt is currently asymptomatic. Denies pain, dysuria, hematuria, or n/v. He is afebrile. White count and Cr are normal. He has a hx of stones requiring surgical intervention and stent placement in the past. He has some baseline dementia. Imaging Imaging: CT Laboratory Last 24 Hours Test 08/10/17 22:03 08/10/17 22:43 08/10/17 23:30 08/11/17 05:20 White Blood Count 12.91 K/uL 7.38 K/uL Red Blood Count 4.43 M/uL 4.28 M/uL Hemoglobin 13.5 g/dL 12.9 g/dL Hematocrit 41.3 % 40.4 % Mean Corpuscular Volume 93.2 fL 94.4 fL Mean Corpuscular Hemoglobin 30.5 pg 30.1 pg Mean Corpuscular Hemoglobin Concent 32.7 g/dl 31.9 g/dl Platelet Count 237 K/uL 204 K/uL Mean Platelet Volume 10.5 fL 11.0 fL Neutrophils (%) (Auto) 76.6 % 56.5 % Lymphocytes (%) (Auto) 11.7 % 27.2 % Monocytes (%) (Auto) 9.9 % 13.3 % Eosinophils (%) (Auto) 1.1 % 2.4 % Basophils (%) (Auto) 0.5 % 0.5 % Neutrophils # (Auto) 9.89 K/uL 4.16 K/uL Lymphocytes # (Auto) 1.51 K/uL 2.01 K/uL Monocytes # (Auto) 1.28 K/uL 0.98 K/uL Eosinophils # (Auto) 0.14 K/uL 0.18 K/uL Basophils # (Auto) 0.06 K/uL 0.04 K/uL RDW Standard Deviation 45.7 fL 46.3 fL RDW Coefficient of Variation 13.4 % 13.5 % Immature Granulocyte % (Auto) 0.2 % 0.1 % Immature Granulocyte # (Auto) 0.03 K/uL 0.01 K/uL Sodium Level 142 mmol/L 142 mmol/L Potassium Level 3.5 mmol/L 3.6 mmol/L Chloride Level 108 mmol/L 110 mmol/L Carbon Dioxide Level 26 mmol/L 24 mmol/L Anion Gap 8.0 mmol/L 8.0 mmol/L Blood Urea Nitrogen 14 mg/dl 13 mg/dl Creatinine 0.97 mg/dl 0.81 mg/dl Est Creatinine Clear Calc Drug Dose 48.5 ml/min 58.1 ml/min Estimated GFR () 81.0 92.6 Estimated GFR (Non- 69.9 79.9 BUN/Creatinine Ratio 13.9 16.3 Random Glucose 116 mg/dl 100 mg/dl Calcium Level 8.8 mg/dl 8.1 mg/dl Prothrombin Time 22.7 SECONDS 22.1 SECONDS Prothromb Time International Ratio 2.1 2.0 Urine Color YELLOW Urine Appearance CLEAR Urine pH 5.0 Urine Specific [place] > 1.045 Urine Protein NEG Urine Glucose (UA) NEG Urine Ketones NEG Urine Occult Blood 2+ Urine Nitrite NEG Urine Bilirubin NEG Urine Urobilinogen NEG Urine Leukocyte Esterase TRACE Urine WBC (Auto) 5-10 /hpf Urine RBC (Auto) >30 /hpf Urine Hyaline Casts (Auto) 1-5 /lpf Urine Epithelial Cells (Auto) 5-10 /lpf Urine Bacteria (Auto) NEG Past History A Fib, BPH, CVA/TIA/stroke, dementia, high cholesterol, hypertension, kidney stones, other (gastric ulcer, GUY, aortic valve disorder) Past Surgical History: appendectomy, cholecystectomy, tonsillectomy, other ( ENT surgery- ? tongue) Family History non-contributory Social History Hx Tobacco Use In Past Year?: No Smoking: quit greater than 1 year Alcohol: never Drug use: none Marital status: Housing status: lives with family (daughter and 2 children and ) Occupation status: retired History of MDRO No Allergies Coded Allergies: Lorazepam (Verified Adverse Reaction, Severe, Unresponsive, 02/08/17) Pt and report that pt became unresponsive and had difficulty breathing in the ER when given Ativan after already having recieved pain meds (? which ones or doses ?) Medications Home Medications: Home Meds and Scripts Medications Dose Route/Sig Max Daily Dose Days Date Category Dose Instructions Vitamin D (Cholecalciferol) 2,000 Unit Tab 1 Tab PO BID 08/10/17 Reported Vitamin B-12 (Cyanocobalamin) 5,000 Mcg Tab 1 Tab PO DAILY 08/10/17 Reported Calan (Verapamil HCl) 120 Mg Tab 120 Mg PO QAM 08/10/17 Reported Mvi With Minerals (Multivitamins/Minerals) Tab 1 Tab PO DAILY 08/10/17 Reported [place]-3 (Fish Oil) 1 Ea Cap 2,800 Mg PO BID 08/10/17 Reported Tylenol (Acetaminophen) 500 Mg Tab 1,000 Mg PO DAILY 08/10/17 Reported Aricept (Donepezil Hydrochloride) 10 Mg Tab 10 Mg PO HS 03/15/17 Reported Calcium 600 + D (Calcium Carbonate-Vitamin D) 1 Tab Tab 1 Tab PO BID 02/08/17 Reported Jantoven (Warfarin Sodium) 2 Mg Tab 1 Mg PO 3XWK 06/11/15 Reported Mo/We/Fr Coumadin (Warfarin Sod) 2 Mg Tab 2 Mg PO 4XWK 02/03/15 Reported [place]///Sa Coenzyme Q-10 (Coenzyme Q10 (Ubidecarenone)) 200 Mg Cap 200 Mg PO QAM 08/24/13 Reported Prilosec (Omeprazole) 20 Mg Cap 20 Mg OR DAILY 01/14/10 Reported Lipitor (Atorvastatin Calcium) 40 Mg Tab 40 Mg PO QAM 11/26/09 Reported Lexapro (Escitalopram Oxalate) 20 Mg Tab 20 Mg PO DAILY 06/11/07 Reported Inpatient Medications: Current Inpatient Medications Medications (Trade) Dose Ordered Sig/Noel Route Start Time Stop Time Status Last Admin Dose Admin Ioversol (Optiray 320) 111 ml UD PRN IV 08/10/17 22:00 08/14/17 21:59 Acetaminophen (Tylenol Tab) 650 mg Q4H PRN PO 08/11/17 01:15 09/10/17 01:14 Al Hydrox/Mg Hydrox/Simethicone (Maalox Max Susp) 15 ml Q4H PRN PO 08/11/17 01:15 09/10/17 01:14 Magnesium Hydroxide (Milk Of Magnesia Susp) 30 ml Q6H PRN PO 08/11/17 01:15 09/10/17 01:14 Polyethylene (Miralax Powder Packet) 17 gm DAILY PRN PO 08/11/17 01:15 09/10/17 01:14 Ondansetron HCl (Zofran Inj) 4 mg Q6H PRN IV 08/11/17 01:15 09/10/17 01:14 Piperacillin Sod/ Tazobactam Sod 3.375 gm/Dextrose 115 ml @ 28.75 mls/ hr Q8H IV 08/11/17 10:00 08/21/17 09:59 Morphine Sulfate (MoRPHine SULFATE INJ) 4 mg Q4H PRN IV 08/11/17 01:15 08/25/17 01:14 Oxycodone HCl (Roxicodone Immediate Rel Tab) 5 mg Q4H PRN PO 08/11/17 01:15 08/25/17 01:14 Atorvastatin Calcium (Lipitor Tab) 40 mg QAM PO 08/11/17 09:00 09/10/17 08:59 Donepezil HCl (Aricept Tab) 10 mg HS PO 08/11/17 21:00 09/10/17 20:59 Escitalopram Oxalate (Lexapro Tab) 20 mg DAILY PO 08/11/17 09:00 09/10/17 08:59 Pantoprazole Sodium (Protonix Tab) 40 mg QAM PO 08/11/17 09:00 09/10/17 08:59 Verapamil HCl (Calan-Sr Tab) 120 mg DAILY PO 08/11/17 09:00 09/10/17 08:59 Potassium Chloride/Sodium Chloride 1,000 ml @ 125 mls/hr Q8H IV 08/11/17 03:30 09/10/17 03:29 08/11/17 03:54 125 MLS/HR Piperacillin Sod/ Tazobactam Sod (Consult) 1 ea UD PRN N/A 08/11/17 01:45 09/10/17 01:44 Review of Systems Review of Systems Constitutional: No fever, No chills Eyes: No double vision Neurological: No dizzy Endocrine: No excessive thirst Gastrointestinal: No abdominal pain, No nausea, No vomiting Cardiovascular: No chest pain Respiratory: No shortness of breath Skin: No rash Musculoskeletal: + arthritis, No back pain Male : No painful urination, No blood in urine Physical Exam Vital Signs: Vital Signs Past 12 Hours Date Time Temp Pulse Resp B/P (MAP) Pulse Ox O2 Delivery O2 Flow Rate FiO2 08/11/17 07:55 Nasal Cannula 2.0 08/11/17 06:58 36.5 59 16 104/60 (75) 93 Room Air 08/11/17 02:00 36.5 57 16 153/64 97 Room Air 08/11/17 01:41 52 22 98 08/11/17 01:31 136/86 08/11/17 01:26 49 19 95 08/11/17 01:11 52 23 95 08/11/17 01:06 56 21 96 08/11/17 01:01 146/69 08/11/17 00:51 51 21 96 08/11/17 00:36 52 20 96 08/11/17 00:31 58 19 119/70 95 08/11/17 00:16 55 20 95 08/11/17 00:01 54 22 125/69 97 08/10/17 23:46 54 20 96 08/10/17 23:31 57 24 150/72 94 08/10/17 23:16 55 20 95 08/10/17 23:10 131/64 08/10/17 22:46 60 22 97 08/10/17 22:36 57 16 139/69 98 2.0 08/10/17 22:34 139/69 08/10/17 22:31 57 17 87 08/10/17 22:21 59 08/10/17 21:04 36.8 60 18 184/81 94 Room Air Physical Exam: General Appearance: no apparent distress Eyes: bilateral eyes normal inspection ENT: hearing grossly normal Neck: no JVD Respiratory/Chest: no respiratory distress, no accessory muscle use Cardiovascular: no JVD Extremities: normal inspection Neurologic/Psychiatric: alert, normal mood/affect, oriented x 3 Skin: normal color Assessment & Plan Assessment & Plan Treatment Planned: ureteroscopy w/ laser, cystoscopy w/ stent A/P: 10mm distal left ureteral stone AFVSS. After discussion with Dr. Larson, will plan to proceed with a cystoscopy with left ureteral stent placement and possible left ureteroscopy and laser lithotripsy today. Risks and benefits of the procedure discussed with the pt. All questions answered. Pt agrees to the procedure at this time. Consent obtained. Will obtain a pre-op chest x-ray and EKG. Thanks for the consult. Will continue to follow along with primary service.
--- NOTE | 2017-08-11 09:08 | DIAGNOSTIC IMAGING REPORT ---
KUB CLINICAL HISTORY: LEFT URETERAL STONE COMPARISON STUDY: CT scan dated 08/10/2017 FINDINGS: There is left-sided hydronephrosis and hydroureter down to the level of the left ureterovesical junction. There is no pathologic bowel dilatation. There are surgical clips the right upper quadrant consistent with a prior cholecystectomy. IMPRESSION: Left-sided hydronephrosis and hydroureter, consistent with the patient's known obstructing left UVJ calculus. Electronically signed by: Kali Julian M.D. 08/11/2017 9:06 AM Dictated Date/Time: 08/11/2017 9:04 AM
--- NOTE | 2017-08-11 09:14 | DIAGNOSTIC IMAGING REPORT ---
CHEST 2 VIEWS ROUTINE CLINICAL HISTORY: 87 years-old Male presenting with pre-op. TECHNIQUE: PA and lateral views of the chest were obtained. COMPARISON: 01/23/2015. FINDINGS: Atherosclerosis of the aortic arch. Mild tortuosity of the descending thoracic aorta. Cardiac silhouette remains mildly enlarged. Prominent reticular lung markings at the lung bases, which may be increased from prior exam. No other focal infiltrate. No pleural effusion or pneumothorax. Degenerative changes of the thoracic spine. Cholecystectomy clips noted. IMPRESSION: 1. Mild cardiomegaly, unchanged. 2. Reticular opacities at the lung bases. This could represent chronic lung disease, atelectasis or scarring, or mild volume overload. Electronically signed by: Yonny Garcia M.D. 08/11/2017 9:13 AM Dictated Date/Time: 08/11/2017 9:11 AM
[2017-08-11] MEDS ORDERED: FENTANYL CITRATE INJ 50 MCG/1 ML 2 ML VIAL ONE (09:50)
[2017-08-11] MEDS: ESCITALOPRAM OXALATE 20 MG TAB PO SCH (09:59)
[2017-08-11] MEDS: VERAPAMIL HCL 120 MG TABCR PO SCH (09:59)
[2017-08-11] MEDS: ATORVASTATIN 40 MG TAB PO SCH (09:59)
[2017-08-11] MEDS: PIPERACILL/TAZOBAC IV 3.375 GM in DEXTROSE 5% 100ML 100 ML IV SCH ×2 (10:00→18:07)
[2017-08-11] MEDS: PANTOprazole SOD 40 MG TAB PO SCH (10:00)
--- NOTE | 2017-08-11 10:07 | [facility] Operative Report ---
Operative Report Operative Date Aug 11, 2017. Pre-Operative Diagnosis Obstructing Stone, UTI Post-Operative Diagnosis Same Procedure(s) Performed Cysto, Left Retrograde, Aspiration of urine, Stent Placement Surgeon Cal Slubber Hand Surgeon(s) None Estimated Blood Loss None Findings Obstructing left distal stone Fluids See Anes Report Drains 6x26 Left Anesthesia MAC Complication(s) None Disposition Recovery Room / PACU Indications Obstructing stone with UTI in older gentleman. Risks and benefits discussed. Description of Procedure Patient was consented and brought back to the operating room. Patient was placed under anesthesia in the supine position. Patient was prepped and draped in the regular sterile fashion. A time out was completed. A 30degree Cystoscope was placed into the bladder and the entire bladder was examined. The UO's were identified. The left side was cannulized with a catheter, an aspiration of urine from the pelvis was taken and sent for analysis, and a retrograde pyelogram was completed. A wire was then placed. With the wire in place, a 6 x 26 Double J stent was placed. It was confirmed with fluoroscopy. With the stent in place, the bladder was emptied. The scope was removed. The patient was cleaned, aroused from anesthesia, and transferred to the pacu in stable condition having tolerated the procedure well with no complications. I was present and participated in all aspects of the procedure. The patient will be monitored in the PACU until transferred. I attest to the content of the Intraoperative Record and any orders documented therein. Any exceptions are noted below.
[2017-08-11] MEDS ORDERED: CONRAY 30% 150ML BOTTLE ONE (10:31)
[2017-08-11] MEDS ORDERED: LIDOCAINE HCL 2% 2 ML VIAL (20MG/ML) ONE (10:32)
[2017-08-11] MEDS ORDERED: PROPOFOL IV EMULSION 10 MG/ML 20 ML VIAL IV ONE (10:32)
[2017-08-11] MEDS ORDERED: PROMETHAZINE HCL INJ 12.5 MG in SODIUM CHLORIDE 0.9% 50ML 50 ML IV PRN (10:45)
[2017-08-11] MEDS ORDERED: LABETALOL HCL IV 5 MG/ML 20ML IV PRN (10:45)
[2017-08-11] MEDS ORDERED: EpHEDrine SULFATE INJ 50 MG/ML AMP IV PRN (10:45)
[2017-08-11] MEDS ORDERED: NALOXONE HCL 0.4 MG/1 ML VIAL/CARP IV PRN (10:45)
[2017-08-11] MEDS ORDERED: ATROPINE SULFATE 0.1 MG/ML 5ML SYR IV PRN (10:45)
[2017-08-11] MEDS ORDERED: FENTANYL CITRATE INJ 50 MCG/1 ML 2 ML VIAL IV PRN (10:45)
[2017-08-11] MEDS ORDERED: GENTAMICIN INJ 160 MG in DEXTROSE 5% 100ML 100 ML IV SCH (11:00)
--- NOTE | 2017-08-11 11:20 | DIAGNOSTIC IMAGING REPORT ---
Radiology RETROGRADE INCLUDES KUB CLINICAL HISTORY: 87 years-old Male presenting with LT CYSTO/STENT. TECHNIQUE: 4 fluoroscopic spot image(s) obtained as part of an intraoperative procedure. COMPARISON: CT from 08/10/2017 and plain radiograph of the abdomen from 08/11/2017. FINDINGS/IMPRESSION: A catheter was introduced into the left renal collecting system, subsequently opacified with contrast. The left renal collecting system is dilated with blunting of the calyces consistent with hydronephrosis. Subsequently, a double-J left ureteral stent was placed. Please see surgical report for further details. Fluoroscopy dosage (mGy): Not available. Fluoroscopy time: 20 seconds. Number of fluoroscopic spot images: 4. Electronically signed by: Yonny Garcia M.D. 08/11/2017 11:19 AM Dictated Date/Time: 08/11/2017 11:18 AM
--- NOTE | 2017-08-11 11:21 | Anesthesiology Progress Note ---
Anesthesia Post Op Note Date & Time Aug 11, 2017 at 11:21 Vital Signs Pain Intensity: 0 Vital Signs Past 12 Hours Date Time Temp Pulse Resp B/P (MAP) Pulse Ox O2 Delivery O2 Flow Rate FiO2 08/11/17 11:15 36.4 52 18 139/59 96 Nasal Cannula 2 08/11/17 11:05 52 15 129/63 99 Oxymask 10 08/11/17 10:58 36.2 56 16 136/64 94 Oxymask 10 08/11/17 07:55 Nasal Cannula 2.0 08/11/17 06:58 36.5 59 16 104/60 (75) 93 Room Air 08/11/17 02:00 36.5 57 16 153/64 97 Room Air 08/11/17 01:41 52 22 98 08/11/17 01:31 136/86 08/11/17 01:26 49 19 95 08/11/17 01:11 52 23 95 08/11/17 01:06 56 21 96 08/11/17 01:01 146/69 08/11/17 00:51 51 21 96 08/11/17 00:36 52 20 96 08/11/17 00:31 58 19 119/70 95 08/11/17 00:16 55 20 95 08/11/17 00:01 54 22 125/69 97 08/10/17 23:46 54 20 96 08/10/17 23:31 57 24 150/72 94 Notes Mental Status: alert / awake / arousable, participated in evaluation Pt Amnestic to Procedure: Yes Nausea / Vomiting: adequately controlled Pain: adequately controlled Airway Patency, RR, SpO2: stable & adequate BP & HR: stable & adequate Hydration State: stable & adequate Anesthetic Complications: no major complications apparent
[2017-08-11] MEDS ORDERED: BELLADONNA/OPIUM SUPP 60 MG SUPP PR ONE (11:37)
[2017-08-11] MEDS ORDERED: EpHEDrine SULFATE 50MG/5ML SYR ONE (11:47)
--- NOTE | 2017-08-11 18:42 | Family Medicine Progress Note ---
Progress Note Date of Service Aug 11, 2017. Subjective Pt evaluation today including: conversation w/ patient, physical exam, chart review, lab review, review of studies, review of inpatient medication list Pain: none reported PO Intake: NPO Voiding: no voiding problems Patient comfortable sitting in chair next to bed. Reports no pain, no nausea, no vomiting. Scheduled for cystoscopy and ureteral stent placement today. Constitutional: No fever, No chills Eyes: No worsening of vision, No diplopia Abdomen: No nausea, No vomiting Male : No dysuria All Other Systems: Reviewed and Negative Medications Current Inpatient Medications Medications (Trade) Dose Ordered Sig/Noel Route Start Time Stop Time Status Last Admin Dose Admin Ioversol (Optiray 320) 111 ml UD PRN IV 08/10/17 22:00 08/14/17 21:59 Acetaminophen (Tylenol Tab) 650 mg Q4H PRN PO 08/11/17 01:15 09/10/17 01:14 Al Hydrox/Mg Hydrox/Simethicone (Maalox Max Susp) 15 ml Q4H PRN PO 08/11/17 01:15 09/10/17 01:14 Magnesium Hydroxide (Milk Of Magnesia Susp) 30 ml Q6H PRN PO 08/11/17 01:15 09/10/17 01:14 Polyethylene (Miralax Powder Packet) 17 gm DAILY PRN PO 08/11/17 01:15 09/10/17 01:14 Ondansetron HCl (Zofran Inj) 4 mg Q6H PRN IV 08/11/17 01:15 09/10/17 01:14 Piperacillin Sod/ Tazobactam Sod 3.375 gm/Dextrose 115 ml @ 28.75 mls/ hr Q8H IV 08/11/17 10:00 08/21/17 09:59 08/11/17 18:07 28.75 MLS/HR Morphine Sulfate (MoRPHine SULFATE INJ) 4 mg Q4H PRN IV 08/11/17 01:15 08/25/17 01:14 Oxycodone HCl (Roxicodone Immediate Rel Tab) 5 mg Q4H PRN PO 08/11/17 01:15 08/25/17 01:14 Atorvastatin Calcium (Lipitor Tab) 40 mg QAM PO 08/11/17 09:00 09/10/17 08:59 Donepezil HCl (Aricept Tab) 10 mg HS PO 08/11/17 21:00 09/10/17 20:59 Escitalopram Oxalate (Lexapro Tab) 20 mg DAILY PO 08/11/17 09:00 09/10/17 08:59 Pantoprazole Sodium (Protonix Tab) 40 mg QAM PO 08/11/17 09:00 09/10/17 08:59 Verapamil HCl (Calan-Sr Tab) 120 mg DAILY PO 08/11/17 09:00 09/10/17 08:59 Potassium Chloride/Sodium Chloride 1,000 ml @ 125 mls/hr Q8H IV 08/11/17 03:30 09/10/17 03:29 08/11/17 12:17 125 MLS/HR Piperacillin Sod/ Tazobactam Sod (Consult) 1 ea UD PRN N/A 08/11/17 01:45 09/10/17 01:44 Objective Vital Signs Date Time Temp Pulse Resp B/P (MAP) Pulse Ox O2 Delivery O2 Flow Rate FiO2 08/11/17 16:20 Room Air 08/11/17 15:25 36.7 59 16 122/61 (81) 92 Room Air 08/11/17 14:48 36.8 56 16 156/88 (110) 95 Nasal Cannula 2.0 08/11/17 13:36 36.6 54 16 133/79 (97) 97 2.0 08/11/17 12:30 36.6 52 16 143/70 (94) 98 Nasal Cannula 2.0 08/11/17 12:10 52 16 144/83 (103) 96 Nasal Cannula 2.0 08/11/17 11:25 50 16 134/61 97 Nasal Cannula 2 08/11/17 11:15 36.4 52 18 139/59 96 Nasal Cannula 2 08/11/17 11:05 52 15 129/63 99 Oxymask 10 08/11/17 11:00 36.6 52 18 149/69 (95) 97 Nasal Cannula 2.0 08/11/17 11:00 97 Nasal Cannula 2.0 08/11/17 10:58 36.2 56 16 136/64 94 Oxymask 10 08/11/17 07:55 Room Air 08/11/17 06:58 36.5 59 16 104/60 (75) 93 Room Air 08/11/17 02:00 36.5 57 16 153/64 97 Room Air 08/11/17 01:41 52 22 98 08/11/17 01:31 136/86 08/11/17 01:26 49 19 95 08/11/17 01:11 52 23 95 08/11/17 01:06 56 21 96 08/11/17 01:01 146/69 08/11/17 00:51 51 21 96 08/11/17 00:36 52 20 96 08/11/17 00:31 58 19 119/70 95 08/11/17 00:16 55 20 95 08/11/17 00:01 54 22 125/69 97 08/10/17 23:46 54 20 96 08/10/17 23:31 57 24 150/72 94 08/10/17 23:16 55 20 95 08/10/17 23:10 131/64 08/10/17 22:46 60 22 97 08/10/17 22:36 57 16 139/69 98 2.0 08/10/17 22:34 139/69 08/10/17 22:31 57 17 87 08/10/17 22:21 59 08/10/17 21:04 36.8 60 18 184/81 94 Room Air Physical Exam General Appearance: WD/WN, no apparent distress Eyes: normal inspection, EOMI ENT: normal ENT inspection, pharynx normal Neck: supple, no JVD Respiratory/Chest: chest non-tender, lungs clear, normal breath sounds, no respiratory distress, no accessory muscle use Cardiovascular: regular rate, rhythm, no edema, no murmur Abdomen: normal bowel sounds, non tender, soft, + pertinent finding (No CVA tenderness) Extremities: normal range of motion, no pedal edema Neurologic/Psychiatric: no motor/sensory deficits, alert, normal mood/affect, oriented x 3 Skin: no rash Laboratory Results Last Resulted 08/11/17 05:20 Red Blood Count 4.28, Mean Corpuscular Volume 94.4, Mean Corpuscular Hemoglobin 30.1, Mean Corpuscular Hemoglobin Concent 31.9, Mean Platelet Volume 11.0, Neutrophils (%) (Auto) 56.5, Lymphocytes (%) (Auto) 27.2, Monocytes (%) (Auto) 13.3, Eosinophils (%) (Auto) 2.4, Basophils (%) (Auto) 0.5, Neutrophils # (Auto ) 4.16, Lymphocytes # (Auto) 2.01, Monocytes # (Auto) 0.98, Eosinophils # (Auto ) 0.18, Basophils # (Auto) 0.04 Last Resulted 08/11/17 05:20 Past 24 Hours Test 08/10/17 22:43 08/11/17 05:20 Range/Units Prothromb Time International Ratio 2.1 H 2.0 H 0.9-1.1 Prothrombin Time 22.7 H 22.1 H 9.0-12.0 SECONDS Assessment and Plan 87 yo male with left distal ureter stone with moderate obstruction; evidence of UTI superimposing presentation with risk of seeding to stone. Left ureteral stone: - Had cystoscopy with left ureteral stent placement - patinet on regular diet post procedure - IVF continue 125 ml/hr Complicated UTI - continue zosyn - pending urine cultures Pain control - tylenol-->oxy-->morphine prn - avoid nsaids Atrial Fibrillation - INR 2.1; coumadin restarted - continue verapamil Hyperlipidemia: continue atorvastatin HTN: verapamil Mild dementia: Aricept Anxiety/Depression: lexapro DVT prophy: warfarin, therapeutic INR CODE: level I full code Dispo: med/surg, OT/PT, plan home tomorrow Resident Tracking Resident Involvement: Resident Care Provided Care Provided: Adult Hospital Medicine
[2017-08-11] MEDS ORDERED: WARFARIN SOD 2 MG TAB PO ONE (19:00)
[2017-08-11] MEDS ORDERED: DONEPEZIL HCL 10 MG TAB PO SCH (21:00)
[2017-08-12] VITALS (8 sets, daily range): BP systolic 147–175; BP diastolic 69–80; PULSE 62–73; TEMP 36.3–37.1; O2SAT 80–96
[2017-08-12] MEDS: PIPERACILL/TAZOBAC IV 3.375 GM in DEXTROSE 5% 100ML 100 ML IV SCH ×2 (01:54→10:10)
[2017-08-12] MEDS: NSS + 20MEQ KCL 1000ML 1,000 ML IV SCH ×2 (03:21→10:10)
[2017-08-12 06:42] LABS: BASO % 0.4 %; BASO ABS # 0.03 K/uL (0-0.2); COMPLETE YES; EOS % 1.6 %; HEMATOCRIT 36.9 % (42-52); IG% 0.4 %; LYMPH % 17.8 %; LYMPH ABS # 1.43 K/uL (1.2-3.4); MEAN CELL VOLUME 93.9 fL (80-100); MEAN CORPUSCULAR HGB CONC 33.1 g/dl (32-36); MEAN PLATELET VOLUME 10.9 fL (7.4-10.4); MONO % 11.6 %; NEUT % 68.2 %; PLATELET COUNT 188 K/uL (130-400); RED BLOOD COUNT 3.93 M/uL (4.7-6.1); WHITE BLOOD COUNT 8.05 K/uL (4.8-10.8)
[2017-08-12 06:54] LABS: INR 1.9 (0.9-1.1); PROTHROMBIN TIME (PATIENT) 20.4 SECONDS (9.0-12.0)
[2017-08-12 07:08] LABS: BUN/CREATININE RATIO 9.4 (10-20); CALCIUM 7.9 mg/dl (8.5-10.1); CREATININE 0.86 mg/dl (0.60-1.40)
--- NOTE | 2017-08-12 08:31 | Progress Note ---
Subjective Date of Service: Aug 12, 2017. Subjective Pt evaluation today including: conversation w/ patient Pain: Resolved. Minor PO Intake: Good intake, Full diet Voiding: no voiding problems Moderate hematuria. Significant improved pain. Tolerating diet. Ambulating. Urinary issues improved. Problem List Medical Problems: (1) Hydronephrosis due to obstruction of ureter Status: Acute (2) Nephrolithiasis Status: Acute (3) UTI (urinary tract infection) Status: Acute Review of Systems All Other Systems: Reviewed and Negative (All reviewed, Pert Pos and Negs in HPI) Objective Vital Signs Date Time Temp Pulse Resp B/P (MAP) Pulse Ox O2 Delivery O2 Flow Rate FiO2 08/12/17 06:56 36.3 70 16 147/70 (95) 95 Room Air 08/12/17 04:48 92 Nasal Cannula 2.0 08/12/17 04:48 88 Room Air 08/12/17 03:26 96 Room Air 08/12/17 03:25 37.0 68 18 164/72 (102) 80 Room Air 08/11/17 23:35 Room Air 08/11/17 23:10 36.8 77 18 145/97 (113) 93 Room Air 08/11/17 16:20 Room Air 08/11/17 15:25 36.7 59 16 122/61 (81) 92 Room Air 08/11/17 14:48 36.8 56 16 156/88 (110) 95 Nasal Cannula 2.0 08/11/17 13:36 36.6 54 16 133/79 (97) 97 2.0 08/11/17 12:30 36.6 52 16 143/70 (94) 98 Nasal Cannula 2.0 08/11/17 12:10 52 16 144/83 (103) 96 Nasal Cannula 2.0 08/11/17 11:25 50 16 134/61 97 Nasal Cannula 2 08/11/17 11:15 36.4 52 18 139/59 96 Nasal Cannula 2 08/11/17 11:05 52 15 129/63 99 Oxymask 10 08/11/17 11:00 36.6 52 18 149/69 (95) 97 Nasal Cannula 2.0 08/11/17 11:00 97 Nasal Cannula 2.0 08/11/17 10:58 36.2 56 16 136/64 94 Oxymask 10 Physical Exam General Appearance: WD/WN, no apparent distress Eyes: normal inspection ENT: normal ENT inspection, hearing grossly normal Neck: supple, no JVD Respiratory/Chest: no respiratory distress, no accessory muscle use Cardiovascular: regular rate, rhythm Abdomen: non tender, soft Extremities: normal range of motion, non-tender, normal inspection 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, no motor/sensory deficits, alert, normal mood/affect, oriented x 3 Skin: normal color, no rash Lymphatic: no adenopathy Laboratory Results Last 24 Hours Test 08/12/17 05:53 White Blood Count 8.05 K/uL Red Blood Count 3.93 M/uL Hemoglobin 12.2 g/dL Hematocrit 36.9 % Mean Corpuscular Volume 93.9 fL Mean Corpuscular Hemoglobin 31.0 pg Mean Corpuscular Hemoglobin Concent 33.1 g/dl Platelet Count 188 K/uL Mean Platelet Volume 10.9 fL Neutrophils (%) (Auto) 68.2 % Lymphocytes (%) (Auto) 17.8 % Monocytes (%) (Auto) 11.6 % Eosinophils (%) (Auto) 1.6 % Basophils (%) (Auto) 0.4 % Neutrophils # (Auto) 5.50 K/uL Lymphocytes # (Auto) 1.43 K/uL Monocytes # (Auto) 0.93 K/uL Eosinophils # (Auto) 0.13 K/uL Basophils # (Auto) 0.03 K/uL RDW Standard Deviation 46.5 fL RDW Coefficient of Variation 13.4 % Immature Granulocyte % (Auto) 0.4 % Immature Granulocyte # (Auto) 0.03 K/uL Prothrombin Time 20.4 SECONDS Prothromb Time International Ratio 1.9 Sodium Level 144 mmol/L Potassium Level 4.0 mmol/L Chloride Level 111 mmol/L Carbon Dioxide Level 25 mmol/L Anion Gap 8.0 mmol/L Blood Urea Nitrogen 8 mg/dl Creatinine 0.86 mg/dl Est Creatinine Clear Calc Drug Dose 54.8 ml/min Estimated GFR () 90.4 Estimated GFR (Non- 78.0 BUN/Creatinine Ratio 9.4 Random Glucose 83 mg/dl Calcium Level 7.9 mg/dl Assessment and Plan 1. POD1 s/p Stent for Obs Left Stone 2. Renal Colic 3. UTI Patient doing well. OOB and Amb. Tolerating diet. Increasing activity. Pain controlled. On abx and following closely with medicine. Will likely need 10-14 day course of antibiotics with deescalation once cultures are available. Plan to follow up as outpatient and discuss intervention. Large distal stone on left. Need urine sterile prior to procedure. Maintain stent. Medications for pain and discomfort. Monitor renal function. Follow up in office. Call if any issues develop. Continued [facility] stay due to: other Discharge planning: home
--- NOTE | 2017-08-12 08:32 | Anesthesiology Progress Note ---
Anesthesia Post Op Note Date & Time Aug 12, 2017 at 08:32 Vital Signs Pain Intensity: 0.0 Vital Signs Past 12 Hours Date Time Temp Pulse Resp B/P (MAP) Pulse Ox O2 Delivery O2 Flow Rate FiO2 08/12/17 06:56 36.3 70 16 147/70 (95) 95 Room Air 08/12/17 04:48 92 Nasal Cannula 2.0 08/12/17 04:48 88 Room Air 08/12/17 03:26 96 Room Air 08/12/17 03:25 37.0 68 18 164/72 (102) 80 Room Air 08/11/17 23:35 Room Air 08/11/17 23:10 36.8 77 18 145/97 (113) 93 Room Air Notes Mental Status: alert / awake / arousable, participated in evaluation Pt Amnestic to Procedure: Yes Nausea / Vomiting: adequately controlled Pain: adequately controlled Airway Patency, RR, SpO2: stable & adequate BP & HR: stable & adequate Hydration State: stable & adequate Anesthetic Complications: no major complications apparent
[2017-08-12] MEDS: VERAPAMIL HCL 120 MG TABCR PO SCH (10:03)
[2017-08-12] MEDS: ESCITALOPRAM OXALATE 20 MG TAB PO SCH (10:03)
[2017-08-12] MEDS: PANTOprazole SOD 40 MG TAB PO SCH (10:04)
[2017-08-12] MEDS: ATORVASTATIN 40 MG TAB PO SCH (10:04)
[2017-08-12] MEDS ORDERED: CIPR-255 PO (15:08)
--- NOTE | 2017-08-12 15:14 | Discharge Instructions ---
Discharge Instructions Date of Service Aug 12, 2017. Admission Reason for Admission: Renal Stone Discharge Discharge Diagnosis / Problem: Renal Calculus Discharge Goals Goal(s): Decrease discomfort, Improve disease control, Therapeutic intervention Activity Recommendations Activity Limitations: per Instructions/Follow-up section . Instructions / Follow-Up Instructions / Follow-Up During this admission, you were diagnosed with a kidney stone. During your stay, a urologist placed a stent in the ureter to help move the stone out. The stone may still pass on its own, and you should continue to strain ALL of your urine at home and collect the stone if you notice it has passed. You were also diagnosed with a urinary tract infection. Because of the infection, the urologist was unable to remove the stone. We did not want the infection to spread into your kidneys. For the urinary infection, you will be given ciprofloxacin, an antibiotic, for 7 takes. take these pills twice daily. For pain, continue to take ibuprofen and/or tylenol as needed. The urology team will be seeing you soon to discuss further intervention once your infection has resolved. Please follow up with your primary care doctor in the next week to monitor your condition and to ensure your kidneys are functioning properly. If your symptoms return or worsen suddenly, or you notice a new fever, nausea, vomiting, or intractable pain, please return to the ER. Current Hospital Diet Patient's current hospital diet: Regular Diet Discharge Diet Recommended Diet: Regular Diet Procedures Procedures Performed: Cysto, Left Retrograde, Aspiration of urine, Stent Placement Pending Studies Studies pending at discharge: yes (Urine culture) List of pending studies: Final Urine culture results pending; preliminary result shows no growth. Medical Emergencies . Who to Call and When: Medical Emergencies: If at any time you feel your situation is an emergency, please call 911 immediately. . Non-Emergent Contact Non-Emergency issues call your: Primary Care Provider . . "Provider Documentation" section prepared by Yamile Hernandez. . VTE Core Measure Inpt VTE Proph given/why not?: Vikas Aguilar, SCD's
[2017-08-12] MEDS: WARFARIN SOD 2 MG TAB PO SCH ×2 (15:40→16:58)
--- NOTE | 2017-08-12 23:17 | Discharge Summary ---
Discharge Summary Date of Service Aug 12, 2017. Discharge Summary Admission Date: Aug 11, 2017 at 01:17 Discharge Date: Aug 12, 2017 Discharge Disposition: Home Principal Diagnosis: Renal calculus Problems/Secondary Diagnoses: Urinary tract infection Procedures: Cystoscopy with left ureteral stent placement Consultations: Urology Medication Reconciliation New Medications: Ciprofloxacin Hcl (Cipro) 500 Mg Tab 500 MG PO BID for 7 Days, #14 TAB Continued Medications: Acetaminophen (Tylenol) 500 Mg Tab 1000 MG PO DAILY, TAB Atorvastatin (Lipitor) 40 Mg Tab 40 MG PO QAM, 0 Refills Calcium Carbonate-Vitamin D (Calcium 600 + D) 1 Tab Tab 1 TAB PO BID Cholecalciferol (Vitamin D) 2,000 Unit Tab 1 TAB PO BID Coenzyme Q10 (Ubidecarenone) (Coenzyme Q-10) 200 Mg Cap 200 MG PO QAM Cyanocobalamin (Vitamin B-12) 5,000 Mcg Tab 1 TAB PO DAILY Donepezil Hydrochloride (Aricept) 10 Mg Tab 10 MG PO HS, TAB Escitalopram Oxalate (Lexapro) 20 Mg Tab 20 MG PO DAILY, 0 Refills Fish Oil (Elfrida-3) 1 Ea Cap 2800 MG PO BID, CAP Multivitamins/Minerals (Mvi With Minerals) Tab 1 TAB PO DAILY, TAB Omeprazole (Prilosec) 20 Mg Cap 20 MG OR DAILY Verapamil (Calan) 120 Mg Tab 120 MG PO QAM, TAB Warfarin Sod (Coumadin) 2 Mg Tab 2 MG PO 4XWK Pickard///Sa Warfarin Sod (Jantoven) 2 Mg Tab 1 MG PO 3XWK, TAB Mo// Discharge Exam ROS: Constitutional: No fever, No chills Eyes: No worsening of vision, No diplopia Abdomen: No nausea, No vomiting Male : No dysuria All Other Systems: Reviewed and Negative Physical Exam General Appearance: WD/WN, no apparent distress Eyes: normal inspection, EOMI ENT: normal ENT inspection, pharynx normal Neck: supple, no JVD Respiratory/Chest: chest non-tender, lungs clear, normal breath sounds, no respiratory distress, no accessory muscle use Cardiovascular: regular rate, rhythm, no edema, no murmur Abdomen: normal bowel sounds, non tender, soft, + pertinent finding (No CVA tenderness) Extremities: normal range of motion, no pedal edema Neurologic/Psychiatric: no motor/sensory deficits, alert, normal mood/affect, oriented x 3 Skin: no rash Hospital Course Pleasant 87 year old male with a history of Afib, HTN, HLD, Depression, Gastric Ulcer, mild dementia, presented with acute onset abdominal pain. The patient suddenly felt left-sided lower back pain radiating to the groin on the left side with intractable nausea and vomiting.. Described it as "very painful", 10/ 10, constant. Tylenol and Ibuprofen helped minimally No blood in the urine. Denies any pain with urination or frequency, No fevers, chills or sweats. He states a prior history of kidney stones. Patient was found to have superimposed asymptomatic/complicated UTI on UA with risk of seeding to stone Left ureteral stone: - Had cystoscopy with left ureteral stent placement; unable to retrieve stone due to superimposed UTI - Patient to follow up with urology team (Dr. Mccall) to discuss further intervention if necessary once UTI is cleared - Continue to strain all urine Complicated UTI - continue cipro 500 BIDx 7 days - pending final urine culture growth Pain control - largely unneeded after dosing in ED Atrial Fibrillation - INR 2.1; coumadin restarted - continued verapamil Hyperlipidemia: continued atorvastatin HTN: verapamil Mild dementia: Aricept Anxiety/Depression: lexapro Total Time Spent: Less than 30 minutes This includes examination of the patient, discharge planning, medication reconciliation, and communication with other providers. Discharge Instructions Please refer to the electronic Patient Visit Report (Discharge Instructions) for additional information. Follow-Up With urology, PCP Additional Copies To Ha Hsieh M.D. Resident Tracking Resident Involvement: Resident Care Provided Care Provided: Adult [facility]
== END 2017-08-12 17:18 | disposition home or self-care (01) | DRG 690 ==
LOC: C.EDB 21:02 → C.MSN 08-11 01:17 → ENRESERV 08-11 01:24
PROVIDERS: ADMIT Student in an Organized Health Care Education/Training Program; ATTEND Hospitalist
PROC: 0T778DZ Dilation of Left Ureter with Intraluminal Device, Via Natural or Artificial Opening Endoscopic (ICD-10-PCS; principal; 2017-08-11 15:30)
DX: N13.6 Pyonephrosis (principal); I48.91 Unspecified atrial fibrillation; E78.5 Hyperlipidemia, unspecified; I10 Essential (primary) hypertension; F03.90 Unspecified dementia, unspecified severity, without behavioral disturbance, psychotic disturbance, mood disturbance, and anxiety; F32.9 Major depressive disorder, single episode, unspecified; G47.33 Obstructive sleep apnea (adult) (pediatric); E66.9 Obesity, unspecified; Z68.31 Body mass index [BMI] 31.0-31.9, adult; Z87.442 Personal history of urinary calculi; Z87.19 Personal history of other diseases of the digestive system; Z86.73 Personal history of transient ischemic attack (TIA), and cerebral infarction without residual deficits; Z79.01 Long term (current) use of anticoagulants; Z79.1 Long term (current) use of non-steroidal anti-inflammatories (NSAID)

== ENCOUNTER → 2017-08-17 | Outpatient (CLI) | payer BC ==
[~2017-08-17] MED LIST changes: +ACET-1256 PO; +CIPR-255 PO; +CYAN50005 PO; -FISHOIL PO; +MULT-513 PO; +OMEG10007 PO; +VERA120T15 PO; -VERA1TAB53 PO
--- NOTE | 2017-08-17 12:50 | DIAGNOSTIC IMAGING REPORT ---
KUB HISTORY: HISTORY OF RENAL CALCULI COMPARISON: KUB 08/11/2017. FINDINGS: The bowel gas pattern is unremarkable. There are no dilated loops of small bowel to suggest an obstruction. Interval placement of a left ureteral stent which appears to be in good position. No renal or ureteral calculi identified. Prior left inguinal hernia repair. Cholecystectomy. No pneumoperitoneum or pneumatosis. IMPRESSION: Interval placement of left ureteral stent which appears to be in good position. No renal or ureteral calculi identified. Electronically signed by: Chace Davis M.D. 08/17/2017 12:49 PM Dictated Date/Time: 08/17/2017 12:46 PM
== END | disposition home or self-care (01) ==
LOC: C.RAD 11:47
PROVIDERS: ATTEND Nurse Practitioner Adult Health
DX: Z87.442 Personal history of urinary calculi (principal); Z96.0 Presence of urogenital implants

== ENCOUNTER → 2017-08-18 | Outpatient (CLI) | payer BC ==
--- NOTE | 2017-08-18 15:27 | DIAGNOSTIC IMAGING REPORT ---
CT OF THE ABDOMEN AND PELVIS WITHOUT CONTRAST CLINICAL HISTORY: Left ureteral stone. COMPARISON STUDY: CT of the abdomen and pelvis August 10, 2017 and KUB August 17, 2017. TECHNIQUE: Axial images of the abdomen and pelvis were obtained without IV contrast. Images were reviewed in the axial, sagittal, and coronal planes. A dose lowering technique was utilized adhering to the principles of ALARA. FINDINGS: A left ureteral stent is in place. A 7 mm x 5 mm distal left ureteral calculus is similar position to exam of August 10, 2017. This is along the distal aspect of the left ureteral stent. Mild left hydroureter is noted. This has improved. Left hydronephrosis has resolved following stent insertion. There is moderate left periureteral infiltration. Several punctate right renal calculi are present. There are no bladder or right ureteral calculi. Evaluation of the remainder of the abdomen and pelvis is suboptimal on this unenhanced exam. Bronchiectasis is noted within visual portions of the lower lungs. There is no biliary ductal dilatation status post cholecystectomy. Mesenteric infiltration is chronic and of doubtful significance. Prostate is moderately enlarged. A previous left inguinal hernia repair with mesh is noted. There is no bowel obstruction. Water attenuation bilateral renal lesions were shown to reflect cysts on prior contrast enhanced exam. IMPRESSION: 1. Left ureteral stent in place. 7 mm x 5 mm distal left ureteral calculus, not significantly changed in position since prior CT of August 10, 2017. 2. Mild left hydroureter with resolution of left hydronephrosis since prior CT. Moderate left periureteral infiltration. 3. Punctate right renal calculi. Electronically signed by: Eusebio Garg M.D. 08/18/2017 3:26 PM Dictated Date/Time: 08/18/2017 3:17 PM
== END | disposition home or self-care (01) ==
LOC: C.CTS 14:58
PROVIDERS: ATTEND Nurse Practitioner Family
DX: N20.1 Calculus of ureter (principal)

== ENCOUNTER → 2017-08-30 | Day surgery (SDC) | payer BC ==
[~2017-08-30] VITALS: Ht 157.5 cm; Wt 76.4 kg
[~2017-08-30] MED LIST changes: +ACET-749 PO; +ACETAMINOPHEN 325 MG TAB PO PRN; +ATROPINE SULFATE 0.1 MG/ML 5ML SYR IV PRN; +CAFF200T13 PO; -CIPR-255 PO; +CIPROFLOXACIN / D5W 400 MG IV SCH; +CONRAY 30% 150ML BOTTLE ONE; +DEXAMETHASONE SOD INJ 4 MG/ML VIAL ONE; +EpHEDrine SULFATE INJ 50 MG/ML AMP IV PRN; +FENTANYL CITRATE INJ 50 MCG/1 ML 2 ML VIAL ONE; +HYDROCODONE/ACETAMOPHEN 5/325MG TAB PO PRN; +LACTATED RINGER'S 1000ML 1,000 ML IV SCH; +LIDOCAINE HCL 2% 2 ML VIAL (20MG/ML) ONE; +NITR1CAP16 PO; +ONDANSETRON INJ 2 MG/ML 2 ML VIAL ONE; +PHEN95TA14 PO; +PROPOFOL IV EMULSION 10 MG/ML 20 ML VIAL IV ONE; +SODIUM CHLORIDE 0.9% 1000ML 1,000 ML IV SCH
[2017-08-30 12:30] VITALS: BP 146/74; PULSE 69; O2SAT 95; Ht 157.5 cm; Wt 76.4 kg
[2017-08-30 12:57] LABS: PARTIAL THROMBOPLASTIN RATIO 1.1; PROTHROMBIN TIME (PATIENT) 11.1 SECONDS (9.0-12.0)
--- NOTE | 2017-08-30 13:17 | History & Physical Bridge Note ---
H&P Re-Evaluation Bridge Note: I have examined the patient, reviewed the History & Physical and in the interval since the performance of the History & Physical I have noted the following changes of clinical significance: No changes noted
--- NOTE | 2017-08-30 13:45 | Discharge Instructions ---
Discharge Instructions Date of Service Aug 30, 2017. Admission Reason for Admission: Stones Discharge Discharge Diagnosis / Problem: stones Discharge Goals Goal(s): Decrease discomfort, Improve function, Increase independence, Improve disease control, Prevent Disease Progression Activity Recommendations Activity Limitations: resume your previous activity Lifting Limitations: none Exercise/Sports Limitations: none May Resume Sexual Activity: when tolerated Shower/Bathe: no limitations Driving or Machine Use: resume 1 day after discharge . Instructions / Follow-Up Instructions / Follow-Up Please keep your previously scheduled follow up appointment. Discharge Diet Recommended Diet: Regular Diet Pending Studies Studies pending at discharge: no Medical Emergencies . Who to Call and When: Medical Emergencies: If at any time you feel your situation is an emergency, please call 911 immediately. . Non-Emergent Contact Non-Emergency issues call your: Urologist Call Non-Emergent contact if: you have a fever, temperature is above 101.5, your pain is not controlled, your pain is worsening . . "Provider Documentation" section prepared by Kan Chavez. . VTE Core Measure Inpt VTE Proph given/why not?: Warfarin (Coumadin) [place] Drug Monitoring Program Search Results: patient reviewed within database, no issues identified
--- NOTE | 2017-08-30 14:24 | [facility] Operative Report ---
Operative Report Operative Date Aug 30, 2017. Pre-Operative Diagnosis Left ureteral stone Post-Operative Diagnosis Left ureteral stone Procedure(s) Performed Cystoscopy, Left Ureteroscopy, Laser Lithotripsy, Stent Exchange Surgeon Dr. Mau Newell [employer] Operator Surgeon(s) None Estimated Blood Loss 0 mL Findings Distal left ureteral stone Specimens No pathology specimens per surgeon Drains 6 B[place]udian by 26 cm double-J ureteral stent Anesthesia Gen. Complication(s) None Disposition Recovery Room / PACU (stable) Indications Symptomatic left distal ureteral stone Description of Procedure The patient was identified in the preoperative holding area, appropriate informed consents were reviewed and completed, and the patient was transported to the operating suite. Upon arrival he received appropriate preoperative antibiotics in the form of ciprofloxacin. Adequate general anesthesia was achieved, and the patient was placed in dorsal lithotomy position where he was sterilely prepped and draped. I began the case by passing a 22 B[place]ud[place] cystoscope with 30 lens. Inspection of the urethra revealed no stricture disease. His prostate was moderately enlarged. Upon entry into the bladder, a full inspection was carried out. There were no mucosal abnormalities or tumors. Ureteral orifices were in orthotopic position, and the left ureteral orifice was easily identified secondary to a stent protruding from it. The distal aspect of the stent was grasped under fluoroscopic guidance was withdrawn to the urethral meatus. Stent was subsequently intubated with a sensor wire which was advanced the kidney. I then reentered the bladder alongside the wire utilizing a semirigid ureteroscope. Gently guided this into the distal left ureter and immediately encountered a yellow appearing calculus. I passed a 400 laser fiber and I fragmented this into small pieces, I subsequently irrigated all of these pieces out of the distal ureter. Before concluding the ureteroscopic portion of the case, I proceeded to advance the scope up maximally and I saw no other stones. Subsequently withdrew the scope, and then reentered with the cystoscope and ultimately guided a 6 B[place] by 26 cm double-J ureteral stent into the kidney over the existing safety wire. There was a good curl in the kidney as well as the bladder. I irrigated the stone out of the bladder, and concluded the case. Patient was reversed from anesthesia and taken to the PACU in stable condition. I attest to the content of the Intraoperative Record and any orders documented therein. Any exceptions are noted below.
--- NOTE | 2017-08-30 15:02 | Anesthesiology Progress Note ---
Anesthesia Post Op Note Date & Time Aug 30, 2017 at 15:01 Vital Signs Pain Intensity: 0 Vital Signs Past 12 Hours Date Time Temp Pulse Resp B/P (MAP) Pulse Ox O2 Delivery O2 Flow Rate FiO2 08/30/17 14:55 37.2 62 16 128/66 95 Room Air Oxymask 08/30/17 14:45 58 16 149/72 99 Oxymask 10 08/30/17 14:35 58 16 168/73 99 Oxymask 10 08/30/17 14:27 36.5 58 16 178/76 99 Oxymask 10 08/30/17 12:30 69 20 146/74 (98) 95 Room Air Notes Mental Status: alert / awake / arousable, participated in evaluation Pt Amnestic to Procedure: Yes Nausea / Vomiting: adequately controlled Pain: adequately controlled Airway Patency, RR, SpO2: stable & adequate BP & HR: stable & adequate Hydration State: stable & adequate Anesthetic Complications: no major complications apparent
[2017-08-30 15:15] VITALS: BP 145/69; PULSE 62; TEMP 36.5; O2SAT 98
[2017-08-30 15:45] VITALS: BP 125/65; PULSE 63; O2SAT 94
[2017-08-30 16:15] VITALS: BP 140/71; PULSE 59; TEMP 36.2; O2SAT 96
== END | disposition home or self-care (01) ==
LOC: C.ACU 12:06
PROVIDERS: ATTEND Urology
DX: N20.1 Calculus of ureter (principal); E78.00 Pure hypercholesterolemia, unspecified; I10 Essential (primary) hypertension; G47.33 Obstructive sleep apnea (adult) (pediatric); E55.9 Vitamin D deficiency, unspecified; M81.0 Age-related osteoporosis without current pathological fracture; Z87.891 Personal history of nicotine dependence; Z79.01 Long term (current) use of anticoagulants

== ENCOUNTER → 2018-05-31 | Outpatient (CLI) | payer BC ==
[~2018-05-31] MED LIST changes: -ACET-749 PO; -ACETAMINOPHEN 325 MG TAB PO PRN; -ATROPINE SULFATE 0.1 MG/ML 5ML SYR IV PRN; -CALC-20 PO; -CIPROFLOXACIN / D5W 400 MG IV SCH; -CONRAY 30% 150ML BOTTLE ONE; -DEXAMETHASONE SOD INJ 4 MG/ML VIAL ONE; -EpHEDrine SULFATE INJ 50 MG/ML AMP IV PRN; -FENTANYL CITRATE INJ 50 MCG/1 ML 2 ML VIAL ONE; -HYDROCODONE/ACETAMOPHEN 5/325MG TAB PO PRN; -LACTATED RINGER'S 1000ML 1,000 ML IV SCH; -LIDOCAINE HCL 2% 2 ML VIAL (20MG/ML) ONE; -NITR1CAP16 PO; -ONDANSETRON INJ 2 MG/ML 2 ML VIAL ONE; -PHEN95TA14 PO; +PROB1TAB16; -PROPOFOL IV EMULSION 10 MG/ML 20 ML VIAL IV ONE; -SODIUM CHLORIDE 0.9% 1000ML 1,000 ML IV SCH; +[UNRECOGNIZED DRUG - OTHER]; +[UNRECOGNIZED DRUG - OTHER]
[2018-05-31 15:08] LABS: ALBUMIN 3.4 gm/dl (3.4-5.0); ALKALINE PHOSPHATASE 75 U/L (45-117); ALT/SGPT 54 U/L (12-78); AST/SGOT 33 U/L (15-37); BLOOD UREA NITROGEN 9 mg/dl (7-18); CALCIUM 8.4 mg/dl (8.5-10.1); CARBON DIOXIDE 27 mmol/L (21-32); CREATININE 0.86 mg/dl (0.60-1.40); GLUCOSE 93 mg/dl (70-99); POTASSIUM 3.8 mmol/L (3.5-5.1); SODIUM 140 mmol/L (136-145); TOTAL PROTEIN 6.9 gm/dl (6.4-8.2)
== END | disposition home or self-care (01) ==
LOC: C.LAB1850 13:19
PROVIDERS: ATTEND Internal Medicine Endocrinology, Diabetes & Metabolism
DX: E83.51 Hypocalcemia (principal); M81.0 Age-related osteoporosis without current pathological fracture; E55.9 Vitamin D deficiency, unspecified